=== PATIENT | male | born 1945 | race Caucasian/White ===

== ENCOUNTER → 2017-01-02 | Outpatient (CLI) | payer BC ==
[~2017-01-02] MED LIST: ASPI81TA28 PO; GLUC1CAP35 PO; MULT-506 PO
[2017-01-02 09:39] LABS: BASO % 0.6 %; BASO ABS # 0.02 K/uL (0-0.2); COMPLETE YES; HEMATOCRIT 41.3 % (42-52); IG% 0.3 %; LYMPH % 38.1 %; LYMPH ABS # 1.35 K/uL (1.2-3.4); MEAN CELL VOLUME 91.6 fL (80-100); MEAN CORPUSCULAR HEMOGLOBIN 31.5 pg (25-34); MEAN CORPUSCULAR HGB CONC 34.4 g/dl (32-36); MEAN PLATELET VOLUME 9.5 fL (7.4-10.4); MONO % 9.6 %; NEUT % 42.4 %; PLATELET COUNT 132 K/uL (130-400); RED BLOOD COUNT 4.51 M/uL (4.7-6.1); WHITE BLOOD COUNT 3.54 K/uL (4.8-10.8)
[2017-01-02 10:10] LABS: ALT/SGPT 28 U/L (12-78); AST/SGOT 19 U/L (15-37); BLOOD UREA NITROGEN 18 mg/dl (7-18); BUN/CREATININE RATIO 21.5 (10-20); CALCIUM 8.3 mg/dl (8.5-10.1); CARBON DIOXIDE 24 mmol/L (21-32); CHLORIDE 109 mmol/L (98-107); CREATININE 0.83 mg/dl (0.60-1.40); GLUCOSE 86 mg/dl (70-99); POTASSIUM 4.2 mmol/L (3.5-5.1); SODIUM 141 mmol/L (136-145)
[2017-01-02 10:15] LABS: ALB/GLOB RATIO 1.1 (0.9-2); ALKALINE PHOSPHATASE 61 U/L (45-117); CHOLESTEROL 109 mg/dl (0-200); CHOLESTEROL/HDL RATIO 2.6; HDL CHOLESTEROL 42 mg/dl; LDL CHOLESTEROL CALCULATED 51 mg/dl; TRIGLYCERIDES 79 mg/dl (0-150); VERY LOW DENSITY LIPOPROT CALC 16 mg/dl
== END | disposition home or self-care (01) ==
LOC: C.LAB 07:45
PROVIDERS: ATTEND Internal Medicine
DX: Z00.00 Encounter for general adult medical examination without abnormal findings (principal); D72.819 Decreased white blood cell count, unspecified; N28.1 Cyst of kidney, acquired; N40.1 Benign prostatic hyperplasia with lower urinary tract symptoms

== ENCOUNTER → 2017-01-17 | Outpatient (CLI) | payer BC ==
--- NOTE | 2017-01-17 15:30 | MAMMOGRAPHY REPORT ---
MALE BILATERAL DIGITAL DIAGNOSTIC MAMMOGRAM TOMOSYNTHESIS WITH CAD AND TARGETED RIGHT ULTRASOUND: 01/17/2017 CLINICAL HISTORY: 71-year-old male presents with an abnormal tingling sensation throughout the right breast for several months, with occasional itching. No palpable mass or focal pain. Overall this ab normal sensation has been decreasing recently. No family history of discharge. Questionable few epi sodes of right breast nipple discharge noted by the patient's family but the patient is unsure if thi s actually represents discharge from the nipple. TECHNIQUE: Bilateral breast tomosynthesis in addition to standard 2D mammography was performed. Curre nt study was also evaluated with a Computer Aided Detection (CAD) system. COMPARISON: No prior exams were available for comparison. BREAST COMPOSITION: The breast parenchyma is nearly entirely fat. FINDINGS: There is no evidence of a suspicious mass, architectural distortion, asymmetry or suspiciou s microcalcifications bilaterally. No focal skin thickening or nipple retraction is identified. No evidence of gynecomastia. Targeted ultrasound was performed throughout the right breast in the area of abnormal tinkering sensa tion described by the patient. Sonographically normal tissue is seen without a suspicious solid or c ystic mass. IMPRESSION: ACR BI-RADS CATEGORY 1: NEGATIVE, TARGETED ULTRASOUND ACR BI-RADS CATEGORY 1: NEGATIVE Normal mammographic appearance of both breasts, and normal right breast ultrasound. There is no mamm ographic or targeted sonographic evidence of malignancy, evidence of gynecomastia or other suspicious abnormality to explain the abnormal tingling sensation of the right breast. No abnormality is ident ified to explain the questionable history of right nipple discharge. Recommend clinical follow-up an d if possible, sampling of the fluid for cytologic analysis may be useful. These results and recommendations were discussed with the patient at the time of the exam. Approximately 10% of breast cancers are not detected with mammography. A negative mammographic report should not delay biopsy if a clinically suggestive mass is present. Flores Jules M.D. ay/:01/17/2017 14:48:13 Airveyor Operator: Nuvia LINN)(Sarah), [facility] letter sent: Normal 1/2 BI-RADS Code: ACR BI-RADS Category 1: Negative Ultrasound BI-RADS: ACR BI-RADS Category 1: Negative
== END | disposition home or self-care (01) ==
LOC: C.MAMM 13:24
PROVIDERS: ATTEND Internal Medicine
DX: N64.3 Galactorrhea not associated with childbirth (principal)

== ENCOUNTER 2023-10-22 16:33 | Inpatient (IN) ==
[2023-10-22 17:20] LABS: iSTAT Creatinine 0.9 mg/dl (0.6-1.3); iSTAT Hemoglobin 11.2 g/dl (14.0-18.0); iSTAT Ionized Calcium 1.08 mmol/l (1.12-1.32); iSTAT Potassium 3.9 mmol/L (3.3-5.0)
[2023-10-22 17:22] LABS: Basophils # (auto) 0.02 K/uL (0.00-0.20); Basophils % (auto) 0.4 %; Eosinophils # (auto) 0.14 K/uL (0.00-0.50); Eosinophils % (auto) 2.9 %; Hematocrit (blood only) 33.9 % (42.0-52.0); Hemoglobin 11.4 g/dl (14.0-18.0); Immature Granulocytes # (auto) 0.02 K/uL (0.01-0.20); Immature Granulocytes % (auto) 0.4 %; Lymphocytes # (auto) 0.83 K/uL (1.20-3.40); Lymphocytes % (auto) 17.1 %; Mean Corpuscular Hgb Conc 33.6 g/dL (32.0-36.0); Mean Corpuscular Volume 92.1 fL (80.0-100.0); Monocytes # (auto) 0.65 K/uL (0.11-0.59); Monocytes % (auto) 13.4 %; Neutrophils # (auto) 3.19 K/uL (1.40-6.50); Neutrophils % (auto) 65.8 %; Platelet Count 160 K/uL (130-400); RDW Coefficient of Variation 12.4 % (11.5-14.5); RDW Standard Deviation 41.2 fL (36.4-46.3); Red Blood Count 3.68 M/uL (4.70-6.10); White Blood Count 4.85 K/ul (4.8-10.8)
--- NOTE | 2023-10-22 17:34 | Emergency Department Note ---
Impression & Plan Acute pericardial effusion ED Provider Note NAME: DEVANTE FALL AGE: 78 SEX: M : 1945 ARRIVES VIA: Walk-In INFORMANT: Patient, ED PROVIDER(S): Anita Esparza MD CHIEF COMPLAINT: Choking HPI: This is a 78-year-old male presenting for choking episode. Patient states that he has had a 1 week history of difficulty swallowing. He notes he has been eating soft/liquid foods due to the scared of choking. He was drinking water today when he had a choking sensation. He has noted fever over the past few days up to 100 degrees. He has had some slight cough for this week as well. No recent nausea, vomiting. No chest pain. He had an EGD about 1 month ago which showed gastritis. ROS: See above HPI for pertinent positives & negatives. A total of 10 systems reviewed and were otherwise negative. PHYSICAL EXAMINATION: General: resting comfortably in no acute distress Head: Normocephalic and atraumatic Eyes: Normal inspection, extraocular muscles intact Ear, nose, throat: Normal external exam Neck: Normal range of motion Respiratory: lungs clear to auscultation bilaterally Cardiovascular: Regular rate/rhythm, no murmur, distant heart sound GI: soft, nontender, no guarding or rebound Extremities: nontender, moves all extremities Neuro: The patient awake and alert, appropriately conversive, no focal deficits, symmetric faces Skin: Warm, dry, and intact MEDICAL DECISION MAKING: This is a 78-year-old male presenting for episode of choking. Patient had previous cardiac workup done about 1 month ago in [place]. There is no acute abnormality found. He then had an episode of choking on water today. No shortness of breath currently. Has had intermittent fevers -Will do CT of the chest/neck to help evaluate for any causes of his aspiration to this new mass, aspiration pneumonia -Patient CT imaging reveals a large pericardial effusion upon my independent interpretation -Clinically no signs of tamponade. No JVD is noted, no hypotension, shortness of breath -Discussed care with Dr. Wright, copy preparer, recommends echocardiogram. He will see the patient consultation tomorrow. -Dr Barrow consulted for admission -Patient's family, and daughter, who is a edgerman, made aware of plan. Differential diagnosis: Aspiration pneumonia, pneumonitis, esophageal mass, esophagitis, ACS, PE ER treatment provided: See below Diagnostics interpreted by me: ECG: ECG independently interpreted by me with normal sinus rhythm, rate of 77, normal axis, normal CA, normal QRS, normal QTc, no ST segment elevations consistent with STEMI criteria, low overall voltage Cardiac Monitoring: An order was placed for continuous cardiac monitoring. The monitor shows a rate of 77 with sinus rhythm. Laboratory studies: As stated above and show below. Imaging studies: See below. 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 Hyperglycemia Vitamin D deficiency Vitamin B12 deficiency Cerumen impaction History of colon polyps Encounter for pre-operative examination Thrombocytopenia Benign prostatic hyperplasia with lower urinary tract symptoms (Acute) Carcinoma of bladder (Acute) sx/chemo Cyst of kidney, acquired (Acute) Laryngopharyngeal reflux (Acute) Leukopenia (Acute) Solitary pulmonary nodule (Acute) Medical History DJD (degenerative joint disease), thoracic Laryngopharyngeal reflux disease Vitamin D deficiency Hx of thrombocytopenia (2019) Cyst of kidney, acquired Solitary pulmonary nodule History of colon polyps Hx of bladder cancer (2018) Low vitamin B12 level COVID (06/2022) Surgical History Hx of oral surgery History of esophagogastroduodenoscopy (EGD) History of cystoscopy History of colonoscopy History of wisdom tooth extraction History of bladder surgery S/P tonsillectomy Family History Father Stroke Other No family history of adverse response to anesthesia Denies family history of Ovarian cancer Prostate cancer Myocardial infarction Breast cancer Colorectal cancer Social History Smoking Status: Never smoker Second Hand Exposure: No; Do You Dip or Chew Tobacco: No; Hx Alcohol Use: Yes Hx Substance Use: No Preferred Language: Divehi Communication Ability: Effective Visual Impairment: No Limitations Hearing Ability: Normal Roller Stainer Required: No Beliefs That Will Affect Care: None marital status: Current Living Situation: Spouse current occupational status: retired Feels Safe at Home: Yes Dental Care, Regularly: Yes Physical Activity Frequency: Daily Seatbelt Use: always Sunscreen Use: No Assistive Devices: Glasses Allergies Allergies Allergy/AdvReac Type Severity Reaction Status Date / Time No Known Drug Allergies Allergy Verified 10/18/23 12:29 Home Meds Home Medications Medication Instructions Recorded Confirmed glucosamine sulfate 500 mg capsule 500 mg PO Q OTHER DAY 08/31/18 10/22/23 mecobalamin (vitamin B12) 1,000 1,000 mcg PO DAILY 08/10/23 10/22/23 mcg chewable tablet multivitamin 1 tab PO DAILY 08/10/23 10/22/23 tamsulosin 0.4 mg capsule 0.4 mg PO Q OTHER DAY 08/10/23 10/22/23 cholecalciferol (vitamin D3) 50 50 mcg PO DAILY 08/31/23 10/22/23 mcg (2,000 unit) capsule Previous Rx's Medication Instructions Recorded pantoprazole 40 mg tablet,delayed 40 mg PO QAM #30 tabs 09/13/23 release Results & Data (ED) Vital Signs Vital Signs - 24 hr 10/22/23 16:37 10/22/23 16:52 10/22/23 16:52 Temperature 36.6 C Temperature Source Temporal Artery Scan Pulse Rate 87 Pulse Rate [Apical] Pulse Rate from SpO2 Sensor Pulse Rhythm [Apical] Respiratory Rate 15 Respiratory Effort / Characteristics Non-Labored Spontaneous Respiratory Depth Normal Respiratory Pattern Blood Pressure 119/80 107/79 107/79 Blood Pressure [Left Arm] Blood Pressure Mean 93 89 89 Blood Pressure Mean [Left Arm] Pulse Oximetry 96 Oxygen Delivery Method Room Air Sepsis Recent Fever Within 48 Hours No Sepsis New/Unexplained Change in Mental Status No Sepsis Action Taken by Nursing No Action Required 10/22/23 16:52 10/22/23 16:52 10/22/23 16:54 Temperature Temperature Source Pulse Rate 80 Pulse Rate [Apical] Pulse Rate from SpO2 Sensor 80 Pulse Rhythm [Apical] Respiratory Rate 25 H Respiratory Effort / Characteristics Respiratory Depth Respiratory Pattern Blood Pressure 107/79 107/79 Blood Pressure [Left Arm] Blood Pressure Mean 89 89 Blood Pressure Mean [Left Arm] Pulse Oximetry 94 Oxygen Delivery Method Sepsis Recent Fever Within 48 Hours Sepsis New/Unexplained Change in Mental Status Sepsis Action Taken by Nursing 10/22/23 16:55 10/22/23 16:57 10/22/23 17:00 Temperature Temperature Source Pulse Rate 80 80 Pulse Rate [Apical] Pulse Rate from SpO2 Sensor 80 Pulse Rhythm [Apical] Respiratory Rate 18 Respiratory Effort / Characteristics Respiratory Depth Respiratory Pattern Blood Pressure 112/86 Blood Pressure [Left Arm] Blood Pressure Mean 98 Blood Pressure Mean [Left Arm] Pulse Oximetry 95 Oxygen Delivery Method Sepsis Recent Fever Within 48 Hours Sepsis New/Unexplained Change in Mental Status Sepsis Action Taken by Nursing 10/22/23 17:09 10/22/23 17:09 10/22/23 17:12 Temperature Temperature Source Pulse Rate 80 Pulse Rate [Apical] 80 Pulse Rate from SpO2 Sensor 80 Pulse Rhythm [Apical] Regular Respiratory Rate 20 19 Respiratory Effort / Characteristics Non-Labored Spontaneous Respiratory Depth Normal Respiratory Pattern Regular Blood Pressure Blood Pressure [Left Arm] 112/86 Blood Pressure Mean Blood Pressure Mean [Left Arm] 94 Pulse Oximetry 94 93 94 Oxygen Delivery Method Room Air Room Air Sepsis Recent Fever Within 48 Hours Sepsis New/Unexplained Change in Mental Status Sepsis Action Taken by Nursing 10/22/23 17:51 10/22/23 18:00 10/22/23 18:12 Temperature Temperature Source Pulse Rate 77 73 77 Pulse Rate [Apical] Pulse Rate from SpO2 Sensor 76 72 79 Pulse Rhythm [Apical] Respiratory Rate 19 17 Respiratory Effort / Characteristics Respiratory Depth Respiratory Pattern Blood Pressure 128/98 Blood Pressure [Left Arm] Blood Pressure Mean 108 Blood Pressure Mean [Left Arm] Pulse Oximetry 95 95 95 Oxygen Delivery Method Sepsis Recent Fever Within 48 Hours Sepsis New/Unexplained Change in Mental Status Sepsis Action Taken by Nursing Laboratory Data 10/22/23 16:52 10/22/23 16:52 Lab Results 10/22/23 10/22/23 10/22/23 Range/Units 16:50 16:52 17:06 WBC 4.85 (4.8-10.8) K/ul RBC 3.68 L (4.70-6.10) M/uL Hgb 11.4 L (14.0-18.0) g/dl POC Hgb 11.2 L (14.0-18.0) g/dl Hct 33.9 L (42.0-52.0) % POC Hct 33 L (42-52) % MCV 92.1 (80.0-100.0) fL MCH 31.0 (25.0-34.0) pg MCHC 33.6 (32.0-36.0) g/dL RDW Std Deviation 41.2 (36.4-46.3) fL RDW Coeff of Shameka 12.4 (11.5-14.5) % Plt Count 160 (130-400) K/uL MPV 9.0 L (9.4-12.4) fL Immature Gran % (Auto) 0.4 % Neut % (Auto) 65.8 % Lymph % (Auto) 17.1 % [place] % (Auto) 13.4 % Eos % (Auto) 2.9 % Baso % (Auto) 0.4 % Neut # (Auto) 3.19 (1.40-6.50) K/uL Lymph # (Auto) 0.83 L (1.20-3.40) K/uL [place] # (Auto) 0.65 H (0.11-0.59) K/uL Eos # (Auto) 0.14 (0.00-0.50) K/uL Baso # (Auto) 0.02 (0.00-0.20) K/uL Immature Gran # (Auto) 0.02 (0.01-0.20) K/uL POC Sodium 138 (135-144) mmol/L Sodium 135 L (136-145) mmol/L POC Potassium 3.9 (3.3-5.0) mmol/L Potassium 3.9 (3.5-5.1) mmol/L POC Chloride 102 (101-112) mmol/L Chloride 104 (98-107) mmol/L Carbon Dioxide 25 (21-32) mmol/L POC Total CO2 22 L (24-31) mmol/L Anion Gap 6 (3-11) POC Anion Gap 18.0 (16-25) mmol/L POC BUN 12 (7-18) mg/dl BUN 14 (6-23) mg/dl Creatinine 0.88 (0.6-1.4) mg/dl POC Creatinine 0.9 (0.6-1.3) mg/dl Est Cr Clr Drug Dosing Not Reportable Est GFR ( Amer) 96.0 ml/min Est GFR (Non-Af Amer) 82.9 ml/min BUN/Creatinine Ratio 15.9 (10-20) Glucose 116 H (70-99(Fasting)) mg/dl POC Glucose (other) 121 H (70-99) mg/dl Calcium 8.3 L (8.6-10.3) mg/dl POC Ioniz Calcium Ted 1.08 L (1.12-1.32) mmol/l Total Bilirubin 0.7 (0.2-1.0) mg/dl AST 35 (13-39) U/L ALT 51 (7-52) U/L Alkaline Phosphatase 67 (34-104) U/L Total Protein 6.9 (6.0-8.3) gm/dl Albumin 3.7 (3.4-5.0) gm/dl Globulin 3.2 (2.5-4.0) gm/dl Albumin/Globulin Ratio 1.2 (0.9-2) Lipase 13 (11-82) U/L Adenovirus (PCR) Not Detected (NotDetected) B. pertussis DNA (PCR) Not Detected (NotDetected) B.parapertussis DNA PCR Not Detected (NotDetected) C. pneumoniae DNA (PCR) Not Detected (NotDetected) Coronavirus OC43 (PCR) Not Detected (NotDetected) Coronavirus HKU1 (PCR) Not Detected (NotDetected) Coronavirus 229E (PCR) Not Detected (NotDetected) SARS-CoV-2 (PCR) Not Detected (NotDetected) Coronavirus NL63 (PCR) Not Detected (NotDetected) Human Metapneumovir PCR Not Detected (NotDetected) Influenza Type A (PCR) Not Detected (NotDetected) Influenza Type B (PCR) Not Detected (NotDetected) M. pneumoniae (PCR) Not Detected (NotDetected) Parainfluenza 1 (PCR) Not Detected (NotDetected) Parainfluenza 2 (PCR) Not Detected (NotDetected) Parainfluenza 3 (PCR) Not Detected (NotDetected) Parainfluenza 4 (PCR) Not Detected (NotDetected) RSV (PCR) Not Detected (NotDetected) Entero/Rhino (PCR) Not Detected (NotDetected) Administered Medications Discontinued Medications Ioversol (Optiray 320 100ml) 94 ml IV ONCE ONE Stop: 10/22/23 17:44 Last Admin: 10/22/23 17:43 Dose: 94 ml Documented By: EDK Imaging Data Radiologist's Impression: Chest CT 10/22/23 16:52 CT chest diagnostic w con CLINICAL HISTORY: aspiration, achalasia, stricture TECHNIQUE: Multidetector row helical CT of the chest was performed with intravenous contrast. Coronal and sagittal reformations were obtained. Automated dose lowering techniques and/or adjustment according to patient size were utilized for this exam. Comparison: Comparison is made to CT chest 01/11/2016 FINDINGS: Lungs and pleura: Atelectasis versus scarring is seen in the dependent portions of the lungs. A right fissural nodule is unchanged. Heart and pericardium: Large pericardial effusion is new from prior exam. Vessels: Pulmonary trunk measures 36 mm in diameter. Mediastinum and wendy: Subcentimeter lymph nodes are seen. Chest wall and lower neck: Unremarkable. Abdomen: A hiatal hernia is seen. Bones: Degenerative changes in the thoracic spine. IMPRESSION: Interval development of a large pericardial effusion. No definite evidence of cardiac tamponade not, however clinical correlation is recommended. ACT 112: Negative or not required by law. Electronically signed by: Petey Wan M.D. 10/22/2023 6:02 PM Soft Tissue Neck CT 10/22/23 16:52 CT soft tissue neck w con CLINICAL HISTORY: achalasia, stricture, previous EGD Technique: Axial CT images of the soft tissues of the neck were obtained following intravenous administration of 100 cc of Omnipaque 300. Automated dose lowering techniques and/or adjustment according to patient size were utilized for this exam. CT DOSE: 1253.68 mGy.cm Comparison: None available at the time of this dictation. Findings: The oropharynx, hypopharynx, larynx, and trachea are patent. No enlarged lymph nodes are seen. The parotid glands, submandibular glands, and thyroid gland are unremarkable. Imaged portions of the brain parenchyma are unremarkable. The paranasal sinuses and mastoid air cells are normal in appearance. Impression: No acute abnormality and in particular the esophagus is normal. ACT 112: Negative or not required by law. Electronically signed by: Petey Wan M.D. 10/22/2023 6:13 PM Discharge Plan Visit Data Chief Complaint: Choking Stated Complaint: CHOKING/COUGHING, NOT CURRENTLY, HEART BURN ED Provider: Anita Esparza Discharge Problem: Acute pericardial effusion Forms Stand Alone Forms: My [facility] Prescriptions Prescriptions: No Action pantoprazole 40 mg tablet,delayed release (DR/EC) 40 mg PO QAM Qty: 30 5RF glucosamine sulfate 500 mg capsule 500 mg PO Q OTHER DAY Patient Comments: takes in am multivitamin Tablet 1 tab PO DAILY mecobalamin (vitamin B12) 1,000 mcg tablet,chewable 1,000 mcg PO DAILY cholecalciferol (vitamin D3) 50 mcg (2,000 unit) capsule 50 mcg PO DAILY tamsulosin 0.4 mg capsule 0.4 mg PO Q OTHER DAY Referrals Referrals: Pro,Faustino Quintana MD [Primary Care Provider] -
[2023-10-22 17:37] LABS: Alanine Aminotransferase 51 U/L (7-52); Albumin Globulin Ratio 1.2 (0.9-2); Albumin Level 3.7 gm/dl (3.4-5.0); Alkaline Phosphatase 67 U/L (34-104); Anion Gap 6 (3-11); Aspartate Aminotransferase 35 U/L (13-39); BUN Creatinine Ratio 15.9 (10-20); Bilirubin,Total 0.7 mg/dl (0.2-1.0); Blood Urea Nitrogen 14 mg/dl (6-23); Calcium 8.3 mg/dl (8.6-10.3); Carbon Dioxide 25 mmol/L (21-32); Chloride 104 mmol/L (98-107); Est GFR (Non-African American) 82.9 ml/min; Globulin 3.2 gm/dl (2.5-4.0); Glucose 116 mg/dl (70-99(Fasting)); Lipase 13 U/L (11-82); Potassium 3.9 mmol/L (3.5-5.1); Sodium 135 mmol/L (136-145); Total Protein 6.9 gm/dl (6.0-8.3)
[2023-10-22] MEDS: OPTIRAY 320 100ml IV ONE (17:43)
--- NOTE | 2023-10-22 18:04 | CT Scan Report ---
CT chest diagnostic w con CLINICAL HISTORY: aspiration, achalasia, stricture TECHNIQUE: Multidetector row helical CT of the chest was performed with intravenous contrast. Coronal and sagittal reformations were obtained. Automated dose lowering techniques and/or adjustment accord ing to patient size were utilized for this exam. Comparison: Comparison is made to CT chest 01/11/2016 FINDINGS: Lungs and pleura: Atelectasis versus scarring is seen in the dependent portions of the lungs. A right fissural nodule is unchanged. Heart and pericardium: Large pericardial effusion is new from prior exam. Vessels: Pulmonary trunk measures 36 mm in diameter. Mediastinum and wendy: Subcentimeter lymph nodes are seen. Chest wall and lower neck: Unremarkable. Abdomen: A hiatal hernia is seen. Bones: Degenerative changes in the thoracic spine. IMPRESSION: Interval development of a large pericardial effusion. No definite evidence of cardiac tamponade not, however clinical correlation is recommended. ACT 112: Negative or not required by law. Electronically signed by: Petey Wan M.D. 10/22/2023 6:02 PM
[2023-10-22 18:08] LABS: Adenovirus PCR Not Detected (NotDetected); Bordetella parapertussis PCR Not Detected (NotDetected); Bordetella pertussis PCR Not Detected (NotDetected); Chlamydia pneumoniae PCR Not Detected (NotDetected); Coronavirus 229E PCR Not Detected (NotDetected); Coronavirus CoV-2 (COVID19)PCR Not Detected (NotDetected); Coronavirus HKU1 PCR Not Detected (NotDetected); Coronavirus NL63 PCR Not Detected (NotDetected); Coronavirus OC43PCR Not Detected (NotDetected); Human Metapneumovirus PCR Not Detected (NotDetected); Influenza A PCR Not Detected (NotDetected); Influenza B PCR Not Detected (NotDetected); Mycoplasma pneumoniae PCR Not Detected (NotDetected); Parainfluenza Virus 1 PCR Not Detected (NotDetected); Parainfluenza Virus 2 PCR Not Detected (NotDetected); Parainfluenza Virus 3 PCR Not Detected (NotDetected); Parainfluenza Virus 4 PCR Not Detected (NotDetected); Respiratory Syncytial VirusPCR Not Detected (NotDetected); Rhinovirus/Enterovirus PCR Not Detected (NotDetected)
--- NOTE | 2023-10-22 18:15 | CT Scan Report ---
CT soft tissue neck w con CLINICAL HISTORY: achalasia, stricture, previous EGD Technique: Axial CT images of the soft tissues of the neck were obtained following intravenous admini stration of 100 cc of Omnipaque 300. Automated dose lowering techniques and/or adjustment according t o patient size were utilized for this exam. CT DOSE: 1253.68 mGy.cm Comparison: None available at the time of this dictation. Findings: The oropharynx, hypopharynx, larynx, and trachea are patent. No enlarged lymph nodes are seen. The pa rotid glands, submandibular glands, and thyroid gland are unremarkable. Imaged portions of the brain parenchyma are unremarkable. The paranasal sinuses and mastoid air cell s are normal in appearance. Impression: No acute abnormality and in particular the esophagus is normal. ACT 112: Negative or not required by law. Electronically signed by: Petey Wan M.D. 10/22/2023 6:13 PM
[2023-10-22 18:55] LABS: Troponin I High Sensitivity 3.2 pg/ml (0-20)
--- NOTE | 2023-10-22 19:15 | History & Physical Report ---
Date of Service October 22, 2023 Assessment & Plan (1) Acute pericardial effusion: (2) Gastritis: (3) GERD (gastroesophageal reflux disease): (4) Thrombocytopenia: (5) Benign prostatic hyperplasia with lower urinary tract symptoms: (6) Carcinoma of bladder: Plan Hunter is a 78M w/ PMH of gastritis, GERD, BPH w/ LUTS, and bladder carcinoma s/p resection who presents for evaluation after a choking episode at home. Pericardial Effusion - Presenting with increasing chest fullness/pressure and cough w/ brief conversation, progressed to choking episode prior to arrival NPO on admission pending Cardiology intervention, would recommend speech eval prior to advancing diet - Chest CT indicating large pericardial effusion No evidence of cardiac tamponade on CT Clinically w/o hypotension or JVD to support tamponade, but heart sounds are muffled on exam - Hemodynamically stable on room air, asymptomatic at rest - Underlying cause undetermined, workup ongoing: ESR, CRP, BRADLEY, RF, Coxsackie, and Lyme/Babesia/Anaplasma pending No leukocytosis or renal abnormality on presenting labs Urinalysis pending BioFire negative - Suspect viral URI leading to pericarditis followed by pericardial effusion Will start Colchicine 1 mg Q12 for 24 hours followed by 0.5 mg BID Will start low dose steroids, Prednisone 20 mg PO daily, would titrate duration to inflammatory markers - Interventional Cardiology consulted, recommending Echocardiogram Echocardiogram ordered STAT 08/25/23 Echocardiogram: EF 60-65%, Aortic Root enlarged to 4.5 cm w/ trace insufficiency 08/25/23 Nuclear Stress Echo: Negative for ischemia Dr. Wright to see at bedside in AM - Immediate drainage not acutely indicated d/t lack of hemodynamic compromise or unstable symptoms - Continue with conservative measures Monitor on PCU/telemetry Chronic Conditions: - GERD: PPI changed to IV - BPH w/ LUTS: continue Tamsulosin - Bladder Carcinoma: S/p resection, continues to follow w/ Urology, no active disease > 1 year Code: Full Diet: NPO Dispo: PCU/tele Consults: Cardiology History of Present Illness Chief Complaint: Choking Episode Primary Care Provider: Faustino Leija MD Hunter is a 78M w/ PMH of gastritis, GERD, BPH w/ LUTS, bladder carcinoma s/p resection, thrombocytopenia, and leukopenia who presents for evaluation after a choking episode at home. Patient notes that mid-afternoon today he had a choking/coughing episode while drinking water and subsequently felt lightheaded and like he was going to pass out. He was able to walk to the bathroom and started to experience nausea and belching. This acute episode prompted him to present to the ED. He notes that over the last week, starting 10/15 he started to feel unwell. His symptoms started with fatigue, but progressed to fevers, chills, and chest heaviness and pressure. He presented to [facility] 10/17 for fevers at home, and was advised to continue OTC supportive measures for a URI (COVID, Flu, and Strep were negative). Patient continued to have intermittent fevers. He has been unable to eat due to chest pressure, notes that his chest feels to full to eat. Patient has been taking Tylenol for his symptoms (Last dose at 10/20). Patient denies dyspnea at rest, but notes that he becomes dyspneic and has coughing spells when he tries to talk to someone. He deneis headaches, lightheadedness or dizziness. Patient notes no changes in urinary or bowel habits, no hematuria or BRBPM. Patient does note that it has been requiring increasing amounts of effort over the last week to do his normal activities, as he becomes fatigued very quickly. Was at daughters in [place] (2 months ago) and had an extreme episode of gastritis, at this time had an EGD and was diagnosed. Took PPI and 1-2 days later was feeling back to normal and was able to drive back to [place]. When he started having coughing episodes, he did increase his Famotidine to BID, and it helped briefly, but the coughing continued to progress. Allergies Allergy/AdvReac Type Severity Reaction Status Date / Time No Known Drug Allergies Allergy Verified 10/18/23 12:29 Home Medications Medication Instructions Recorded Confirmed Type glucosamine sulfate 500 mg capsule 500 mg PO Q OTHER DAY 08/31/18 10/22/23 History mecobalamin (vitamin B12) 1,000 1,000 mcg PO DAILY 08/10/23 10/22/23 History mcg chewable tablet multivitamin 1 tab PO DAILY 08/10/23 10/22/23 History tamsulosin 0.4 mg capsule 0.4 mg PO Q OTHER DAY 08/10/23 10/22/23 History cholecalciferol (vitamin D3) 50 50 mcg PO DAILY 08/31/23 10/22/23 History mcg (2,000 unit) capsule pantoprazole 40 mg tablet,delayed 40 mg PO QAM #30 tabs 09/13/23 10/22/23 Rx release 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 Hyperglycemia Vitamin D deficiency Vitamin B12 deficiency Cerumen impaction History of colon polyps Encounter for pre-operative examination Thrombocytopenia Benign prostatic hyperplasia with lower urinary tract symptoms (Acute) Carcinoma of bladder (Acute) sx/chemo Cyst of kidney, acquired (Acute) Laryngopharyngeal reflux (Acute) Leukopenia (Acute) Solitary pulmonary nodule (Acute) Medical History DJD (degenerative joint disease), thoracic Laryngopharyngeal reflux disease Vitamin D deficiency Hx of thrombocytopenia (2019) Cyst of kidney, acquired Solitary pulmonary nodule History of colon polyps Hx of bladder cancer (2018) Low vitamin B12 level COVID (06/2022) Surgical History Hx of oral surgery History of esophagogastroduodenoscopy (EGD) History of cystoscopy History of colonoscopy History of wisdom tooth extraction History of bladder surgery S/P tonsillectomy Family History Father Stroke Other No family history of adverse response to anesthesia Denies family history of Ovarian cancer Prostate cancer Myocardial infarction Breast cancer Colorectal cancer Social History Smoking Status: Never smoker Second Hand Exposure: No; Do You Dip or Chew Tobacco: No; Hx Alcohol Use: Yes Alcohol type: wine Hx Substance Use: No Preferred Language: Botswanan Communication Ability: Effective Visual Impairment: No Limitations Hearing Ability: Normal Client Services Analyst Required: No Beliefs That Will Affect Care: None marital status: Current Living Situation: Spouse current occupational status: retired Feels Safe at Home: Yes Safety Concerns: Feels Safe At This Time Dental Care, Regularly: Yes Physical Activity Frequency: Daily Seatbelt Use: always Sunscreen Use: No Assistive Devices: Glasses Physical Exam Physical Exam: Gen: NAD, alert, interactive HEENT: Supple, no LAD, no thyromegaly, no JVD Resp:Non-labored, no wheezing/rhonchi/rales, CTAB - Coughing spells with conversation CV:RRR, normal S1/S2, no M/R/G, heart sounds muffled, no pericardial friction rub Abd: Soft, non-distended, no TTP, normoactive bowels, no masses Extr: 2+ dp bilaterally, no edema, clinically well perfused Skin: No rashes lesions or erythema Results & Data Results & Data Vital Signs (Past 12 Hours) Vital Signs Temp Pulse Pulse Resp BP BP Pulse Ox 10/22/23 18:12 77 17 128/98 95 10/22/23 18:00 73 95 10/22/23 17:51 77 19 95 10/22/23 17:12 80 19 94 10/22/23 17:09 80 20 112/86 93 10/22/23 17:09 94 10/22/23 17:00 112/86 10/22/23 16:57 80 18 95 10/22/23 16:55 80 10/22/23 16:54 80 25 H 94 10/22/23 16:52 107/79 10/22/23 16:52 107/79 10/22/23 16:52 107/79 10/22/23 16:52 107/79 10/22/23 16:37 36.6 C 87 15 119/80 96 O2 Del Method 10/22/23 18:12 10/22/23 18:00 10/22/23 17:51 10/22/23 17:12 10/22/23 17:09 Room Air 10/22/23 17:09 Room Air 10/22/23 17:00 10/22/23 16:57 10/22/23 16:55 10/22/23 16:54 10/22/23 16:52 10/22/23 16:52 10/22/23 16:52 10/22/23 16:52 10/22/23 16:37 Room Air Supervising Physician Co-Signing Physician Notes Attending addendum: I have physically seen this patient, have supervised the medical residents activities, and agree with the H&P unless as otherwise noted. Assessment and Plan: Large pericardial effusion- The patient will be admitted to telemetry for serial cardiac enzymes, serial EKG's, cardiac rhythm monitoring and a 2-D echocardiogram with Dopplers. Noticed on CT chest No suggestion of cardiac tamponade on examination or imaging Patient reports having had a temperature up to 101 F yesterday Primary symptom has been that of a cough, with a negative GI workup BioFire test negative Additional laboratories ordered with the following results: ESR 55, Lyme test negative, anaplasmosis and babesiosis smears negative with antibodies pending, Monospot negative, uric acid Following studies that are pending: Coxsackie virus, EBV, BRADLEY, rheumatoid factor Start prednisone 20 mg p.o. daily, colchicine 0.6 mg p.o. twice daily N.p.o. except medications as above Avoiding NSAIDs due to thrombocytopenia history Consult cardiology GERD- Continue pantoprazole but changed to IV BPH with LUTS- Continue tamsulosin post procedure Resident Activity Tracking Resident Involvement: Resident Care Provided Care Provided: Adult [facility]
[2023-10-22] MEDS ORDERED: ONDANSETRON INJ 2 MG/ML 2 ML VIAL IV PRN (22:35)
[2023-10-22 23:06] LABS: C Reactive Protein 11.01 mg/dl (0-0.5)
[2023-10-22] MEDS: PANTOprazole 40 MG in SYRINGE 0 ML IV SCH (23:12)
[2023-10-22] MEDS: predniSONE 20 MG TAB PO STA (23:12)
[2023-10-22] MEDS: COLCHICINE 0.6 MG TAB PO SCH (23:51)
--- NOTE | 2023-10-23 03:18 | Billing Data ---
Date of Service October 23, 2023 Coding Level of Care Code 27601 INT INP/OBS CARE
[2023-10-23 03:21] LABS: Appearance Urine Clear (Clear); Bilirubin Urine Negative (Negative); Blood Urine Negative (Negative); Color Urine Yellow; Glucose Urine UA Negative (Negative); Ketones Urine Negative (Negative); Leukocyte Esterase Urine Negative (Negative); Nitrite Urine Negative (Negative); Protein Urine Negative (Negative); Specific Gravity Urine 1.018 (1.000-1.030); Urobilinogen Urine Negative (Negative); pH Urine 8.5 (4.5-7.5)
[2023-10-23 07:09] LABS: Hematocrit (blood only) 34.1 % (42.0-52.0); Hemoglobin 11.4 g/dl (14.0-18.0); Mean Corpuscular Hemoglobin 31.1 pg (25.0-34.0); Mean Corpuscular Hgb Conc 33.4 g/dL (32.0-36.0); Mean Corpuscular Volume 92.9 fL (80.0-100.0); Platelet Count 161 K/uL (130-400); RDW Coefficient of Variation 12.2 % (11.5-14.5); RDW Standard Deviation 41.5 fL (36.4-46.3); Red Blood Count 3.67 M/uL (4.70-6.10); White Blood Count 4.58 K/ul (4.8-10.8)
[2023-10-23 07:31] LABS: Albumin Globulin Ratio 1.1 (0.9-2); Albumin Level 3.6 gm/dl (3.4-5.0); BUN Creatinine Ratio 15.2 (10-20); Bilirubin,Total 0.8 mg/dl (0.2-1.0); Calcium 8.3 mg/dl (8.6-10.3); Est GFR (African American) 100.4 ml/min; Est GFR (Non-African American) 86.6 ml/min; Globulin 3.2 gm/dl (2.5-4.0); Potassium 4.4 mmol/L (3.5-5.1); Total Protein 6.8 gm/dl (6.0-8.3)
[2023-10-23] MEDS: TAMSULOSIN HCL 0.4 MG CAP PO SCH (08:34)
[2023-10-23] MEDS: predniSONE 20 MG TAB PO SCH (08:35)
--- NOTE | 2023-10-23 09:23 | Pre Anesthesia Assessment ---
Date of Service October 23, 2023 Pre Sedation Assessment Vital Signs Temp Pulse Pulse Resp BP BP Pulse Ox 10/23/23 07:45 37.0 C 88 20 125/68 88 L 10/23/23 06:42 66 10/23/23 02:25 37.1 C 73 18 110/75 90 10/22/23 22:57 80 10/22/23 22:37 10/22/23 22:30 37.2 C 90 16 98/79 L 96 10/22/23 22:25 37.2 C 93 H 18 98/79 L 95 10/22/23 22:03 94 H 20 94 10/22/23 22:00 85 20 114/81 95 10/22/23 21:00 121/98 10/22/23 21:00 121/98 10/22/23 21:00 92 H 16 94 10/22/23 20:51 83 10/22/23 20:42 78 21 95 10/22/23 20:39 79 20 95 10/22/23 20:30 135/90 10/22/23 20:30 135/90 10/22/23 20:27 79 18 95 10/22/23 20:21 80 21 95 10/22/23 20:12 79 29 H 96 10/22/23 20:07 123/82 10/22/23 20:07 123/82 10/22/23 20:04 78 19 95 10/22/23 20:03 78 32 H 95 10/22/23 19:57 86 24 95 10/22/23 19:30 76 17 96 10/22/23 19:30 119/88 10/22/23 19:30 119/88 10/22/23 19:21 77 28 H 94 10/22/23 19:15 77 29 H 95 10/22/23 19:01 118/71 10/22/23 19:01 118/71 10/22/23 19:01 118/71 10/22/23 19:00 77 20 93 10/22/23 18:51 78 26 H 95 10/22/23 18:39 75 20 96 10/22/23 18:38 115/81 10/22/23 18:12 77 17 128/98 95 10/22/23 18:00 73 95 10/22/23 17:51 77 19 95 10/22/23 17:12 80 19 94 10/22/23 17:09 80 20 112/86 93 10/22/23 17:09 94 10/22/23 17:00 112/86 10/22/23 16:57 80 18 95 10/22/23 16:55 80 10/22/23 16:54 80 25 H 94 10/22/23 16:52 107/79 10/22/23 16:52 107/79 10/22/23 16:52 107/79 10/22/23 16:52 107/79 10/22/23 16:37 36.6 C 87 15 119/80 96 O2 Del Method 10/23/23 07:45 Room Air 10/23/23 06:42 10/23/23 02:25 Room Air 10/22/23 22:57 10/22/23 22:37 Room Air 10/22/23 22:30 Room Air 10/22/23 22:25 Room Air 10/22/23 22:03 10/22/23 22:00 Room Air 10/22/23 21:00 10/22/23 21:00 10/22/23 21:00 10/22/23 20:51 10/22/23 20:42 10/22/23 20:39 10/22/23 20:30 10/22/23 20:30 10/22/23 20:27 10/22/23 20:21 10/22/23 20:12 10/22/23 20:07 10/22/23 20:07 10/22/23 20:04 10/22/23 20:03 10/22/23 19:57 10/22/23 19:30 10/22/23 19:30 10/22/23 19:30 10/22/23 19:21 10/22/23 19:15 10/22/23 19:01 10/22/23 19:01 10/22/23 19:01 10/22/23 19:00 10/22/23 18:51 10/22/23 18:39 10/22/23 18:38 10/22/23 18:12 10/22/23 18:00 10/22/23 17:51 10/22/23 17:12 10/22/23 17:09 Room Air 10/22/23 17:09 Room Air 10/22/23 17:00 10/22/23 16:57 10/22/23 16:55 10/22/23 16:54 10/22/23 16:52 10/22/23 16:52 10/22/23 16:52 10/22/23 16:52 10/22/23 16:37 Room Air Cardiovascular RRR, no murmur, no edema (Distant heart sounds. No JVD or edema.) Respiratory normal respiratory effort, lungs clear to auscultation Pre-Sedation Airway Assessment Smoking Status: Never smoker Mallampati 2 ASA 3 Notes The planned sedation has been discussed with the patient. Informed Consent was obtained. I have identified the patient, determined the appropriateness of sedation and have assessed the patient immediately prior to the procedure. All medicine(s) and interventions are by my order.
--- NOTE | 2023-10-23 09:33 | Cardiology Consultation ---
Date of Consultation October 23, 2023 Assessment & Plan (1) Acute pericardial effusion: Patient will undergo ultrasound-guided pericardiocentesis. Labs will be sent for cytology as well as chemistries. Further recommendations pending results. History of Present Illness Reason for Consultation: Pericardial effusion Attending Physician: Wallace Suarez History of Present Illness 78-year-old gentleman who presented with choking episode. He is also had a cough which is nonproductive. Incidentally found to have large pericardial effusion on CT scan. No definitive evidence of cardiac tamponade. I was asked to see him regarding the pericardial effusion. Patient has a history of bladder carcinoma treated in 2018. He also has BPH. In August of this year he presented to hospital in [facility] with severe chest pain. At that time he was evaluated by cardiology. A CT scan demonstrated small pericardial effusion. Stress testing was negative for myocardial ischemia and an echocardiogram did not show any significant abnormalities. He does not recall if he had any preceding viral illness type symptoms. He described the discomfort as epigastric burning which was quite severe. It eventually resolved. The CT scan at that time also showed dilated ascending thoracic aorta at 4.5 cm. Today, patient denies any anginal chest pain heaviness or tightness. No shortness of breath. The choking sensation has resolved. He continues with a cough. No syncope, near syncope, orthopnea, PND, racing heartbeat, palpitati ons, or edema. He tells me when he presented in August he had the epigastric discomfort which was associated with near syncope and weakness. He voices no other complaints or concerns at this time. We discussed pericardiocentesis versus conservative medical management with diuresis. He wishes to proceed with pericardiocentesis so that we may also obtain the diagnostic information available by that method. Allergies Allergy/AdvReac Type Severity Reaction Status Date / Time No Known Drug Allergies Allergy Verified 10/18/23 12:29 Home Medications Medication Instructions Recorded Confirmed Type glucosamine sulfate 500 mg capsule 500 mg PO Q OTHER DAY 08/31/18 10/22/23 History mecobalamin (vitamin B12) 1,000 1,000 mcg PO DAILY 08/10/23 10/22/23 History mcg chewable tablet multivitamin 1 tab PO DAILY 08/10/23 10/22/23 History tamsulosin 0.4 mg capsule 0.4 mg PO Q OTHER DAY 08/10/23 10/22/23 History cholecalciferol (vitamin D3) 50 50 mcg PO DAILY 08/31/23 10/22/23 History mcg (2,000 unit) capsule pantoprazole 40 mg tablet,delayed 40 mg PO QAM #30 tabs 09/13/23 10/22/23 Rx release Patient History Medical History DJD (degenerative joint disease), thoracic Laryngopharyngeal reflux disease Vitamin D deficiency Hx of thrombocytopenia (2018) Cyst of kidney, acquired Solitary pulmonary nodule pt unaware History of colon polyps Hx of bladder cancer (2017) sx/chemo Low vitamin B12 level COVID (06/2022) hx- no hosp; resolved Surgical History Hx of oral surgery dental implants History of esophagogastroduodenoscopy (EGD) History of cystoscopy History of colonoscopy History of wisdom tooth extraction History of bladder surgery for tumor S/P tonsillectomy Family History Father Stroke Other No family history of adverse response to anesthesia Denies family history of Ovarian cancer Prostate cancer Myocardial infarction Breast cancer Colorectal cancer Social History Smoking Status: Never smoker Second Hand Exposure: No; Do You Dip or Chew Tobacco: No; Hx Alcohol Use: Yes Alcohol type: wine Hx Substance Use: No Preferred Language: Salvadorean Communication Ability: Effective Visual Impairment: No Limitations Hearing Ability: Normal Stagecraft Teacher Required: No Beliefs That Will Affect Care: None marital status: Current Living Situation: Spouse current occupational status: retired Feels Safe at Home: Yes Safety Concerns: Feels Safe At This Time Dental Care, Regularly: Yes Physical Activity Frequency: Daily Seatbelt Use: always Sunscreen Use: No Assistive Devices: Glasses Review of Systems Review of Systems: Negative except as per HPI Physical Exam Constitutional: WD/WN, vitals as above Eyes: Extraocular muscles intact. Sclera are anicteric. ENMT: Oral mucosa is pink moist and intact Neck: No JVD Respiratory: Clear to auscultation bilaterally. No wheezing, rhonchi, or rales. Good air movement. Cardiovascular: Regular rate and rhythm. Distant heart sounds. Do not appreciate any rubs or murmurs. No edema. Musculoskeletal: no cyanosis or clubbing, extremities motor strength 5/5 Neurologic: Cognition is intact. Speech is fluent. No focal deficits. Psychiatric: A+Ox3, euthymic affect Results & Data Vital Signs (Past 12 Hours) Vital Signs Temp Pulse Pulse Resp BP Pulse Ox O2 Del Method 10/23/23 07:45 37.0 C 88 20 125/68 88 L Room Air 10/23/23 06:42 66 10/23/23 02:25 37.1 C 73 18 110/75 90 Room Air 10/22/23 22:57 80 10/22/23 22:37 Room Air 10/22/23 22:30 37.2 C 90 16 98/79 L 96 Room Air 10/22/23 22:25 37.2 C 93 H 18 98/79 L 95 Room Air 10/22/23 22:03 94 H 20 94 10/22/23 22:00 85 20 114/81 95 Room Air PG Care Time/CCT Total # of Minutes Spent Total Time Spent with Patient: Total time spent is greater than 50% in coordination of care (as documented) at patient's floor/unit and/or counseling patient: Coding Level of Care Code 25550 INT INP/OBS CARE 2/MIN Diagnoses Acute pericardial effusion I30.9
[2023-10-23] MEDS: LIDOCAINE 1% LOCAL 20 ML VIAL ONE (10:21)
[2023-10-23] MEDS: MIDAZOLAM HCL 1 MG/ML 2ML VIAL ONE (10:21)
[2023-10-23] MEDS: fentaNYL citrate PF 100 MCG/2 ML VIAL ONE (10:51)
--- NOTE | 2023-10-23 11:03 | Post Anesthesia Assessment ---
Date of Service October 23, 2023 Post Sedation Assessment Vital Signs Temp Pulse Pulse Resp BP BP Pulse Ox 10/23/23 09:41 78 16 116/74 94 10/23/23 07:45 37.0 C 88 20 125/68 88 L 10/23/23 06:42 66 10/23/23 02:25 37.1 C 73 18 110/75 90 10/22/23 22:57 80 10/22/23 22:37 10/22/23 22:30 37.2 C 90 16 98/79 L 96 10/22/23 22:25 37.2 C 93 H 18 98/79 L 95 10/22/23 22:03 94 H 20 94 10/22/23 22:00 85 20 114/81 95 10/22/23 21:00 121/98 10/22/23 21:00 121/98 10/22/23 21:00 92 H 16 94 10/22/23 20:51 83 10/22/23 20:42 78 21 95 10/22/23 20:39 79 20 95 10/22/23 20:30 135/90 10/22/23 20:30 135/90 10/22/23 20:27 79 18 95 10/22/23 20:21 80 21 95 10/22/23 20:12 79 29 H 96 10/22/23 20:07 123/82 10/22/23 20:07 123/82 10/22/23 20:04 78 19 95 10/22/23 20:03 78 32 H 95 10/22/23 19:57 86 24 95 10/22/23 19:30 76 17 96 10/22/23 19:30 119/88 10/22/23 19:30 119/88 10/22/23 19:21 77 28 H 94 10/22/23 19:15 77 29 H 95 10/22/23 19:01 118/71 10/22/23 19:01 118/71 10/22/23 19:01 118/71 10/22/23 19:00 77 20 93 10/22/23 18:51 78 26 H 95 10/22/23 18:39 75 20 96 10/22/23 18:38 115/81 10/22/23 18:12 77 17 128/98 95 10/22/23 18:00 73 95 10/22/23 17:51 77 19 95 10/22/23 17:12 80 19 94 10/22/23 17:09 80 20 112/86 93 10/22/23 17:09 94 10/22/23 17:00 112/86 10/22/23 16:57 80 18 95 10/22/23 16:55 80 10/22/23 16:54 80 25 H 94 10/22/23 16:52 107/79 10/22/23 16:52 107/79 10/22/23 16:52 107/79 10/22/23 16:52 107/79 10/22/23 16:37 36.6 C 87 15 119/80 96 O2 Del Method 10/23/23 09:41 Room Air 10/23/23 07:45 Room Air 10/23/23 06:42 10/23/23 02:25 Room Air 10/22/23 22:57 10/22/23 22:37 Room Air 10/22/23 22:30 Room Air 10/22/23 22:25 Room Air 10/22/23 22:03 10/22/23 22:00 Room Air 10/22/23 21:00 10/22/23 21:00 10/22/23 21:00 10/22/23 20:51 10/22/23 20:42 10/22/23 20:39 10/22/23 20:30 10/22/23 20:30 10/22/23 20:27 10/22/23 20:21 10/22/23 20:12 10/22/23 20:07 10/22/23 20:07 10/22/23 20:04 10/22/23 20:03 10/22/23 19:57 10/22/23 19:30 10/22/23 19:30 10/22/23 19:30 10/22/23 19:21 10/22/23 19:15 10/22/23 19:01 10/22/23 19:01 10/22/23 19:01 10/22/23 19:00 10/22/23 18:51 10/22/23 18:39 10/22/23 18:38 10/22/23 18:12 10/22/23 18:00 10/22/23 17:51 10/22/23 17:12 10/22/23 17:09 Room Air 10/22/23 17:09 Room Air 10/22/23 17:00 10/22/23 16:57 10/22/23 16:55 10/22/23 16:54 10/22/23 16:52 10/22/23 16:52 10/22/23 16:52 10/22/23 16:52 10/22/23 16:37 Room Air Recovery Score Activity: Moves 4 extremities Respiration: Deep Breath/Cough Circulation: +/-20% PreAnes Value Consciousness: Fully Awake Oxygen Saturation: > 92% On Room Air Discharge Sedation Level of Care: Fast Track Phase II Post Sedation Plan On clinical assessment, the patient appears to have tolerated the sedation without complications. Patient is recovering as anticipated. Patient will continue to be monitored by nursing and may be discharged when sedation discharge criteria are met per below protocol. Upon Completions of procedure up to 15 minutes continue every 5 minute vital signs and the P.A.R. score; then discharge to a Phase I or Fast Track to Phase II per the following guidelines: * Discharge Patient to appropriate Phase II area if PAR is 8 or greater or return to pre- procedure baseline. The post - procedure orders will be as directed. * If PAR score is less than 8 or not return to pre-procedure baseline then patient will follow Phase I monitoring till PAR is reached for Phase II. The Phase I may be done in procedure room or may call to secure a Phase I area. * If naloxone or flumazenil are used for reversal, hold in Phase I for continued monitoring from when last reversal dose was given for a minimum of 60 minutes or longer pending the nurse and/or physician discretion of patient condition before discharge to Phase II. Please call the Sedation Physician to re-evaluate and complete post-note for discharge to Phase II area. Do NOT discharge from procedure sedation or Phase 1 until post- sedation evaluat ion note is complete by procedure /sedation MD Sedation Discharge Instructions to be given to the patient at discharge to home. [facility] Procedure Codes (Charges) Indication for Procedure Indication for procedure: PERICARDIAL EFFUSION LARGE HX OF BLADDER CA Sedation/Anesthesia Procedure 1: Sedation/Anesthesia: 57599 Mod Sedation by the same physician;Init15 Min Child Age 5 & Up (Initial 15 minutes, start time 1020) Total Sedation Time (minutes): 33 Procedure 2: Sedation/Anesthesia: 53697 Mod Sedation by the same physician; Ea Addit ional15 Minutes (Additional 18 minutes, end time 1053) Total Sedation Time (minutes): 33
--- NOTE | 2023-10-23 11:58 | Cardiac Catheterization ---
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 Cardiac Status Clinical evaluation leading to the procedure CAD Presenation: No Sxs, No angina Diagnostic Physicians Name: Doug Wright MD, PhD Closure Device Recommendations: Medical Therapy and/or Counseling Cardiac Cath Procedure Full Procedure Date October 23, 2023 Pre-Procedure Diagnosis Pre-Procedure Diagnosis: Pericardial Disease AUC Score AUC Score: 07 Post-Procedure Diagnosis Post-Procedure Diagnosis: Cardiothoracic Finding (Large pericardial effusion, successful pericardiocentesis) Procedure(s) Performed Procedure(s) Performed: Ultrasound Guided Vascular Access and Pericardiocentesis Drum Sander Offbearer Doug Wright MD, PhD Estimated Blood Loss Estimated Blood Loss: Less than 3 cc Medication(s) Medication(s): Fentanyl, Lidocaine 1% and Versed Summary of Findings Brief description: Patient was brought to the cardiac catheterization suite where he was shaved and prepped in a sterile fashion. Sedated using IV Versed and fentanyl. Soft tissues of the anterior chest was anesthetized using 4 mL of 1% Xylocaine. Using the ultrasound for guidance and a micropuncture kit the pericardium was accessed. Through the micropuncture sheath, confirmation of access was performed with agitated saline injection. We then utilized a dilator and exchanged for the sheath. Then we advanced the pigtail catheter under fluoroscopic guidance but it was evident that we had lost pericardial placement. Decision was made to access from the subxiphoid approach. Pigtail was removed and pressure held over the access site. Soft tissues of the subxiphoid area were anesthetized using 5 mL of 1% Xylocaine. Using the long micropuncture needle and sheath under ultrasonic guidance we were able to reaccessed the pericardial space. The long micropuncture sheath was then advanced over the wire. Again, we confirmed pericardial placement with agitated saline injection. Using a long 0.035 J-tip wire we exchanged the micropuncture sheath for a 6 Syrian sheath. Then, through this we advanced the 6 Syrian pigtail catheter over the wire. Placement was confirmed on fluoroscopy. We then began pericardial drainage. 590 mL of serosanguineous fluid was removed monitored continuously with ultrasound. 50 mL of fluid were sent for laboratory testing. The pigtail was attached to the accordion negative pressure system and then the sheath plus the pigtail catheter were sutured in place. A Biopatch was applied to the access site. The pigtail catheter and sheath were then dressed with a Tegaderm. Patient remained hemodynamically stable and asymptomatic. There was no respiratory distress. He was therefore returned to the recovery area with plans for admission to the ICU per hospital policy. This ended the case. Findings/summary: 1. Removal of 590 mL of serosanguineous pericardial fluid. Minimal residual pericardial effusion noted with echo postprocedure. 2. Pericardial fluid is sent for basic labs and cytology given history of cancer. 3. Chest x-ray will be ordered to exclude pneumothorax. Patient will remain with the pigtail in place for 24 hours and will be reassessed at that time. Removal of the pigtail catheter and sheath once appropriate. Hemodynamics Rest Ao:: Not performed Final Ao: Not performed LV: Not performed Recommendations Recommendations: Medical Therapy and/or Counseling Specimens Specimens: 590 mL pericardial fluid Radiation Exposure (mGy) 115 mGy, fluoroscopy time 2.6 min Contrast (mls) None Drains Drains: 6 Syrian pigtail pericardial drain Anesthesia 2 mg Versed, 50 mcg fentanyl IV. Start 1020, End 1053 Procedural Complication(s) None Disposition ICU I attest to the content of the Intraoperative Record and any orders documented therein. Any exceptions are noted below. [facility] Card Cath Procedure Codes Therapeutic Services & Ancillary Procedure 1: Cardiovascular Tx and Anc Procedures: 28384 Ultrasonic Guidance Earlene cardiocentesis Procedure 2: Cardiovascular Tx and Anc Procedures: 25080 Pericardiocentesis w / Imaging Moderate Sedation Procedure 1: Sedation/Anesthesia: 00187 Mod Sedation by the same physician;Init15 Min Child Age 5 & Up (Initial 15 minutes, start time 1020) Procedure 2: Sedation/Anesthesia: 71616 Mod Sedation by the same physician; Ea [id number] Minutes (Additional 18 min, end time 1053) PG Care Time/CCT Total # of Minutes Spent Total Time Spent with Patient: Total time spent is greater than 50% in coordination of care (as documented) at patient's floor/unit and/or counseling patient:
[2023-10-23] MEDS: SODIUM CHLORIDE 0.9% 1,000 ML IV SCH (12:07)
--- NOTE | 2023-10-23 12:09 | XRay Report ---
XR chest 1V portable HISTORY: post pericardial drain COMPARISON: Chest CT 10/22/2023. FINDINGS: No pneumothorax. The cardiac silhouette is moderately enlarged. A left-sided pericardial dr ain has been placed in the interval. No evidence for pulmonary edema. Left basilar linear densities f avor subsegmental atelectasis. No acute fractures. IMPRESSION: 1. Interval placement of a left-sided pericardial drain. 2. Moderate enlargement of the cardiac silhouette persists. 3. No pneumothorax. ACT 112: Negative or not required by law. Electronically signed by: Mariusz Liu M.D. 10/23/2023 12:07 PM
--- NOTE | 2023-10-23 14:30 | Critical Care Consultation ---
Date of Consultation October 23, 2023 Assessment & Plan (1) Acute respiratory failure with hypoxia: Reason Critically Ill: 78-year-old male status post pericardial drainage PLAN: Resp: Acute hypoxic respiratory failure -Wean oxygen as tolerated -Pulmonary consult CV: Acute pericardial effusion -Status post drainage -Fluid studies pending Fluids/Renal: Mild hypocalcemia ID: Serologies pending on pericardial fluid GI/Nutrition: Reflux -Speech evaluation possible video laryngoscopy for questionable silent aspiration Heme: New onset anemia Reported chronic leukopenia DVT prophylaxis: SCDs, chemoprophylaxis contraindicated at this time Endocrine: ICU hyperglycemia protocol TSH pending Vascular access: [] Code Status: [] Disposition: [] (2) Acute pericardial effusion: (3) GERD (gastroesophageal reflux disease): (4) Benign prostatic hyperplasia with lower urinary tract symptoms: (5) Carcinoma of bladder: History of Present Illness Reason for Consultation: Pericardial drain in place Requesting Physician: Wallace Suarez Attending Physician: Wallace Suarez History of Present Illness Patient is a 78-year-old male with past medical history of GERD, BPH, bladder carcinoma status postresection who presented after a choking episode and was found to have a pericardial effusion on CT. History obtained regarding cardiovascular symptoms revealed an echocardiogram and nuclear stress test on August 25, 2023 which was by enlarge part unremarkable, aortic root enlarged to 4.5 cm EF 60 to 65%. Patient underwent pericardial drain with cardiology today, 500 mL of fluid had been removed. Allergies Allergy/AdvReac Type Severity Reaction Status Date / Time No Known Drug Allergies Allergy Verified 10/18/23 12:29 Home Medications Medication Instructions Recorded Confirmed Type glucosamine sulfate 500 mg capsule 500 mg PO Q OTHER DAY 08/31/18 10/22/23 History mecobalamin (vitamin B12) 1,000 1,000 mcg PO DAILY 08/10/23 10/22/23 History mcg chewable tablet multivitamin 1 tab PO DAILY 08/10/23 10/22/23 History tamsulosin 0.4 mg capsule 0.4 mg PO Q OTHER DAY 08/10/23 10/22/23 History cholecalciferol (vitamin D3) 50 50 mcg PO DAILY 08/31/23 10/22/23 History mcg (2,000 unit) capsule pantoprazole 40 mg tablet,delayed 40 mg PO QAM #30 tabs 05/29/24 07/07/24 Rx release Patient History Medical History DJD (degenerative joint disease), thoracic Laryngopharyngeal reflux disease Vitamin D deficiency Hx of thrombocytopenia (2019) Cyst of kidney, acquired Solitary pulmonary nodule pt unaware History of colon polyps Hx of bladder cancer (2018) sx/chemo Low vitamin B12 level COVID (06/2022) hx- no hosp; resolved Surgical History Hx of oral surgery dental implants History of esophagogastroduodenoscopy (EGD) History of cystoscopy History of colonoscopy History of wisdom tooth extraction History of bladder surgery for tumor S/P tonsillectomy Family History Father Stroke Other No family history of adverse response to anesthesia Denies family history of Ovarian cancer Prostate cancer Myocardial infarction Breast cancer Colorectal cancer Social History Smoking Status: Never smoker Second Hand Exposure: No; Do You Dip or Chew Tobacco: No; Hx Alcohol Use: Yes Alcohol type: wine Hx Substance Use: No Preferred Language: Gambian Communication Ability: Effective Visual Impairment: No Limitations Hearing Ability: Normal Dietitian Consultant Required: No Beliefs That Will Affect Care: None marital status: Current Living Situation: Spouse current occupational status: retired Feels Safe at Home: Yes Safety Concerns: Feels Safe At This Time Dental Care, Regularly: Yes Physical Activity Frequency: Daily Seatbelt Use: always Sunscreen Use: No Assistive Devices: Glasses Physical Exam Physical Exam: General: Alert. nontoxic. Skin: Warm, dry, Head: Atraumatic Ears, nose, mouth and throat: airway patent Cardiovascular: Normal peripheral perfusion, pericardial drain in place draining serosanguineous fluid Respiratory: no respiratory distress Gastrointestinal: Non distended Musculoskeletal: No deformity Results & Data Results & Data Vital Signs (Past 12 Hours) Vital Signs Temp Pulse Pulse Resp BP BP Pulse Ox 10/23/23 13:12 106 H 33 H 91 10/23/23 12:46 105/60 10/23/23 12:39 103 H 20 89 L 10/23/23 12:31 122/65 10/23/23 12:31 122/65 10/23/23 12:18 99 H 24 92 10/23/23 12:16 110/74 10/23/23 12:16 110/74 10/23/23 12:15 102 H 28 H 90 10/23/23 12:03 92 H 32 H 89 L 10/23/23 12:00 123/85 10/23/23 12:00 10/23/23 11:53 89 22 128/81 92 10/23/23 11:22 82 14 132/77 94 10/23/23 11:07 81 14 119/81 93 10/23/23 09:41 78 16 116/74 94 10/23/23 07:45 37.0 C 88 20 125/68 88 L 10/23/23 06:42 66 O2 Del Method O2 Flow Rate 10/23/23 13:12 10/23/23 12:46 10/23/23 12:39 10/23/23 12:31 10/23/23 12:31 10/23/23 12:18 Oxymask 5 10/23/23 12:16 10/23/23 12:16 10/23/23 12:15 Nasal Cannula 2 10/23/23 12:03 Nasal Cannula 2 10/23/23 12:00 10/23/23 12:00 Nasal Cannula 2 10/23/23 11:53 Nasal Cannula 2 10/23/23 11:22 Nasal Cannula 3 10/23/23 11:07 Nasal Cannula 3 10/23/23 09:41 Room Air 10/23/23 07:45 Room Air 10/23/23 06:42 Critical Care Results & Data Vital Signs (Past 12 Hours) Vital Signs Temp Pulse Pulse Resp BP BP Pulse Ox 10/23/23 13:12 106 H 33 H 91 10/23/23 12:46 105/60 10/23/23 12:39 103 H 20 89 L 10/23/23 12:31 122/65 10/23/23 12:31 122/65 10/23/23 12:18 99 H 24 92 10/23/23 12:16 110/74 10/23/23 12:16 110/74 10/23/23 12:15 102 H 28 H 90 10/23/23 12:03 92 H 32 H 89 L 10/23/23 12:00 123/85 10/23/23 12:00 10/23/23 11:53 89 22 128/81 92 10/23/23 11:22 82 14 132/77 94 10/23/23 11:07 81 14 119/81 93 10/23/23 09:41 78 16 116/74 94 10/23/23 07:45 37.0 C 88 20 125/68 88 L 10/23/23 06:42 66 O2 Del Method O2 Flow Rate 10/23/23 13:12 10/23/23 12:46 10/23/23 12:39 10/23/23 12:31 10/23/23 12:31 10/23/23 12:18 Oxymask 5 10/23/23 12:16 10/23/23 12:16 10/23/23 12:15 Nasal Cannula 2 10/23/23 12:03 Nasal Cannula 2 10/23/23 12:00 10/23/23 12:00 Nasal Cannula 2 10/23/23 11:53 Nasal Cannula 2 10/23/23 11:22 Nasal Cannula 3 10/23/23 11:07 Nasal Cannula 3 10/23/23 09:41 Room Air 10/23/23 07:45 Room Air 10/23/23 06:42 Lab & Micro Results (Past 24 Hours) RBC 3.67 M/uL (4.70-6.10) L 10/23/23 WBC 4.58 K/ul (4.8-10.8) L 10/23/23 Hgb 11.4 g/dl (14.0-18.0) L 10/23/23 Hct 34.1 % (42.0-52.0) L 10/23/23 MCV 92.9 fL (80.0-100.0) 10/23/23 MCH 31.1 pg (25.0-34.0) 10/23/23 MCHC 33.4 g/dL (32.0-36.0) 10/23/23 RDW Standard Deviation 41.5 fL (36.4-46.3) 10/23/23 RDW Coefficient of Variation 12.2 % (11.5-14.5) 10/23/23 Plt Count 161 K/uL (130-400) 10/23/23 MPV 9.0 fL (9.4-12.4) L 10/23/23 Neutrophils (%) (Auto) 65.8 % 10/22/23 Lymphocytes (%) (Auto) 17.1 % 10/22/23 Monocytes # (Auto) 0.65 K/uL (0.11-0.59) H 10/22/23 Eosinophils # (Auto) 0.14 K/uL (0.00-0.50) 10/22/23 Immature Granulocyte % (Auto) 0.4 % 10/22/23 Neutrophils # (Auto) 3.19 K/uL (1.40-6.50) 10/22/23 Lymphocytes # (Auto) 0.83 K/uL (1.20-3.40) L 10/22/23 Monocytes # (Auto) 0.65 K/uL (0.11-0.59) H 10/22/23 Eosinophils # (Auto) 0.14 K/uL (0.00-0.50) 10/22/23 Basophils # (Auto) 0.02 K/uL (0.00-0.20) 10/22/23 Immature Granulocyte # (Auto) 0.02 K/uL (0.01-0.20) 4 Na 138 mmol/L (136-145) 10/23/23 K 4.4 mmol/L (3.5-5.1) 10/23/23 Cl 107 mmol/L (98-107) 10/23/23 CO2 26 mmol/L (21-32) 10/23/23 Anion Gap 5 (3-11) 10/23/23 BUN 12 mg/dl (6-23) 10/23/23 Creatinine 0.79 mg/dl (0.6-1.4) 10/23/23 Estimated GFR ( Amer) 100.4 ml/min 10/23/23 Estimated GFR (Non-Af Amer) 86.6 ml/min 10/23/23 BUN/Creatinine Ratio 15.2 (10-20) 10/23/23 Glu 124 mg/dl (70-99(Fasting)) H 10/23/23 Ca 8.3 mg/dl (8.6-10.3) L 10/23/23 Total Bilirubin 0.8 mg/dl (0.2-1.0) 10/23/23 AST 30 U/L (13-39) 10/23/23 ALT 50 U/L (7-52) 10/23/23 Alkaline Phosphatase 72 U/L (34-104) 10/23/23 TP 6.8 gm/dl (6.0-8.3) 10/23/23 Albumin 3.6 gm/dl (3.4-5.0) 10/23/23 Globulin 3.2 gm/dl (2.5-4.0) 10/23/23 Albumin/Globulin Ratio 1.1 (0.9-2) 10/23/23 Calcium Level 8.3 mg/dl (8.6-10.3) L 10/23/23 06:24 Diagnostic Findings (Past 24 Hours) Chest CT 10/22/23 16:52 CT chest diagnostic w con CLINICAL HISTORY: aspiration, achalasia, stricture TECHNIQUE: Multidetector row helical CT of the chest was performed with intravenous contrast. Coronal and sagittal reformations were obtained. Automated dose lowering techniques and/or adjustment according to patient size were utilized for this exam. Comparison: Comparison is made to CT chest 01/11/2016 FINDINGS: Lungs and pleura: Atelectasis versus scarring is seen in the dependent portions of the lungs. A right fissural nodule is unchanged. Heart and pericardium: Large pericardial effusion is new from prior exam. Vessels: Pulmonary trunk measures 36 mm in diameter. Mediastinum and wendy: Subcentimeter lymph nodes are seen. Chest wall and lower neck: Unremarkable. Abdomen: A hiatal hernia is seen. Bones: Degenerative changes in the thoracic spine. IMPRESSION: Interval development of a large pericardial effusion. No definite evidence of cardiac tamponade not, however clinical correlation is recommended. ACT 112: Negative or not required by law. Electronically signed by: Petey Wan M.D. 10/22/2023 6:02 PM Soft Tissue Neck CT 10/22/23 16:52 CT soft tissue neck w con CLINICAL HISTORY: achalasia, stricture, previous EGD Technique: Axial CT images of the soft tissues of the neck were obtained following intravenous administration of 100 cc of Omnipaque 300. Automated dose lowering techniques and/or adjustment according to patient size were utilized for this exam. CT DOSE: 1253.68 mGy.cm Comparison: None available at the time of this dictation. Findings: The oropharynx, hypopharynx, larynx, and trachea are patent. No enlarged lymph nodes are seen. The parotid glands, submandibular glands, and thyroid gland are unremarkable. Imaged portions of the brain parenchyma are unremarkable. The paranasal sinuses and mastoid air cells are normal in appearance. Impression: No acute abnormality and in particular the esophagus is normal. ACT 112: Negative or not required by law. Electronically signed by: Petey Wan M.D. 10/22/2023 6:13 PM Chest X-Ray 10/23/23 11:25 XR chest 1V portable HISTORY: post pericardial drain COMPARISON: Chest CT 10/22/2023. FINDINGS: No pneumothorax. The cardiac silhouette is moderately enlarged. A l eft-sided pericardial drain has been placed in the interval. No evidence for pulmonary edema. Left basilar linear densities favor subsegmental atelectasis. No acute fractures. IMPRESSION: 1. Interval placement of a left-sided pericardial drain. 2. Moderate enlargement of the cardiac silhouette persists. 3. No pneumothorax. ACT 112: Negative or not required by law. Electronically signed by: Mariusz Liu M.D. 10/23/2023 12:07 PM RT Ventilator Mngmt (Last Documented) Ventilator Ordered Settings Respiratory Rate 33 10/23/23 13:12 Ventilator - PT Measurements Respiratory Rate 33 Coding Level of Care Code 07095 IN/OBS CONSULT LVL 4,60M Diagnoses Acute respiratory failure with hypoxia J96.01 Acute pericardial effusion I30.9 GERD (gastroesophageal reflux disease) K21.9 Benign prostatic hyperplasia with lower urinary tract symptoms N40.1 Carcinoma of bladder C67.9
--- NOTE | 2023-10-23 14:43 | Pulmonary Consultation ---
Date of Consultation October 23, 2023 Assessment & Plan (1) Acute pericardial effusion: (2) Abnormal chest CT: (3) Acute respiratory failure with hypoxia: Plan CT chest 10/22/2023 personally reviewed: Right upper lobe apical 1.7 cm left Atelectasis of the inferior lobe of the lingula Subsegmental atelectasis bilateral lower lobes more on the right side Large pericardial effusion No significant mediastinal lymphadenopathy -- Acute hypoxic respiratory failure Multifactorial Questionable aspiration at home as well as while in the ICU Does have collapse of the inferior lobe of the lingula, could be mechanical from the large pericardial effusion CRP 11.01, ESR 55 Respiratory bio fire negative for everything -- Abnormal chest CT Patient seems to have atelectasis of the inferior lobe of the lingula New compared to CT chest in 2016. Could be consequent to compression by large pericardial effusion Recommend repeating a CT chest in 6-8 weeks Plan: Continue with O2 supplementation to keep oxygen saturation around 90-92% Incentive spirometry will be beneficial. If the patient gets hypoxic moving forward then I would recommend to order a CTA. The probability of patient having pulmonary emboli is low. I did look at the chest x-ray which was done following the hypoxic event in the ICU. There is no significant change compared to before. No signs of pneumothorax. Early aspiration episode would not show any changes on the chest x-ray right away. Recommend repeating a chest x-ray in the morning. Please note the above document was generated using voice recognition software. It may contain grammatical, syntax or spelling errors.Any formal questions or concerns about the content, text or information contained within the body of this dictation should be directly addressed to the provider for clarification. History of Present Illness Attending Physician: Wallace Suarez History of Present Illness 78-year-old male present to the hospital with shortness of breath Past medical history: BPH, GERD, gastritis Pulmonary consulted for hypoxia Patient was found to have large pericardial effusion for which she went to cardiac cath and had pericardial drainage done At the time of examination patient was saturating 93-94% on 5 L nasal cannula, I was gradually able to titrate down to 3 L Patient's daughter and are also in the room. Patient daughter is a physician. Denied any shortness of breath prior to coming to the hospital. There is questionable aspiration history as per the daughter. Patient was drinking water when he felt that he choked on it and started to cough this 20 saturation went down. Repeat chest x-ray which was done after the choking episode did not show any worsening compared to when he presented to the hospital. Did complain of some chest pain at the site of the drain. No fever no chills No night sweats, no unintentional weight loss No headache, no blurry vision No personal or family history of any autoimmune disease like lupus, sarcoid, Sjogren's, rheumatoid No Raynaud's Social history: Lifetime non-smoker Originally from [facility]. Has been in [facility] for most 33 years Allergies Allergy/AdvReac Type Severity Reaction Status Date / Time No Known Drug Allergies Allergy Verified 10/18/23 12:29 Home Medications Medication Instructions Recorded Confirmed Type glucosamine sulfate 500 mg capsule 500 mg PO Q OTHER DAY 08/31/18 10/22/23 History mecobalamin (vitamin B12) 1,000 1,000 mcg PO DAILY 08/10/23 10/22/23 History mcg chewable tablet multivitamin 1 tab PO DAILY 08/10/23 10/22/23 History tamsulosin 0.4 mg capsule 0.4 mg PO Q OTHER DAY 08/10/23 10/22/23 History cholecalciferol (vitamin D3) 50 50 mcg PO DAILY 08/31/23 10/22/23 History mcg (2,000 unit) capsule pantoprazole 40 mg tablet,delayed 40 mg PO QAM #30 tabs 09/13/23 10/22/23 Rx release Patient History Medical History DJD (degenerative joint disease), thoracic Laryngopharyngeal reflux disease Vitamin D deficiency Hx of thrombocytopenia (2018) Cyst of kidney, acquired Solitary pulmonary nodule pt unaware History of colon polyps Hx of bladder cancer (2018) sx/chemo Low vitamin B12 level COVID (06/2022) hx- no hosp; resolved Surgical History Hx of oral surgery dental implants History of esophagogastroduodenoscopy (EGD) History of cystoscopy History of colonoscopy History of wisdom tooth extraction History of bladder surgery for tumor S/P tonsillectomy Family History Father Stroke Other No family history of adverse response to anesthesia Denies family history of Ovarian cancer Prostate cancer Myocardial infarction Breast cancer Colorectal cancer Social History Smoking Status: Never smoker Second Hand Exposure: No; Do You Dip or Chew Tobacco: No; Hx Alcohol Use: Yes Alcohol type: wine Hx Substance Use: No Preferred Language: Qatari Communication Ability: Effective Visual Impairment: No Limitations Hearing Ability: Normal Preschool Substitute Teacher Required: No Beliefs That Will Affect Care: None marital status: Current Living Situation: Spouse current occupational status: retired Feels Safe at Home: Yes Safety Concerns: Feels Safe At This Time Dental Care, Regularly: Yes Physical Activity Frequency: Daily Seatbelt Use: always Sunscreen Use: No Assistive Devices: Glasses Review of Systems 2 Review of Systems: All systems reviewed & are unremarkable except as noted in HPI & below Physical Exam 2 Physical Exam: Constitutional: No acute distress HEENT: EOMI, PERRLA Respiratory system: Good air entry bilaterally, no wheeze, no rhonchi, mild crackles bilateral lower lobes CVS: S1-S2 positive, no murmurs or gallops Abdomen: Soft, nontender, nondistended, positive bowel sounds x4 Extremities: +2 pulses bilaterally radialis/ dorsalis pedis, no cyanosis, no edema Neuro: Awake alert oriented x3 Psych: Normal mood and affect G/U: No Chacko Skin: no rashes, warm and dry Lymphatic: no cervical or axillary lymphadenopathy Results & Data Results & Data Vital Signs (Past 12 Hours) Vital Signs Temp Pulse Pulse Resp BP BP Pulse Ox 10/23/23 13:12 106 H 33 H 91 10/23/23 12:46 105/60 10/23/23 12:39 103 H 20 89 L 10/23/23 12:31 122/65 10/23/23 12:31 122/65 10/23/23 12:18 99 H 24 92 10/23/23 12:16 110/74 10/23/23 12:16 110/74 10/23/23 12:15 102 H 28 H 90 10/23/23 12:03 92 H 32 H 89 L 10/23/23 12:00 123/85 10/23/23 12:00 10/23/23 11:53 89 22 128/81 92 10/23/23 11:22 82 14 132/77 94 10/23/23 11:07 81 14 119/81 93 10/23/23 09:41 78 16 116/74 94 10/23/23 07:45 37.0 C 88 20 125/68 88 L 10/23/23 06:42 66 O2 Del Method O2 Flow Rate 10/23/23 13:12 10/23/23 12:46 10/23/23 12:39 10/23/23 12:31 10/23/23 12:31 10/23/23 12:18 Oxymask 5 10/23/23 12:16 10/23/23 12:16 10/23/23 12:15 Nasal Cannula 2 10/23/23 12:03 Nasal Cannula 2 10/23/23 12:00 10/23/23 12:00 Nasal Cannula 2 10/23/23 11:53 Nasal Cannula 2 10/23/23 11:22 Nasal Cannula 3 10/23/23 11:07 Nasal Cannula 3 10/23/23 09:41 Room Air 10/23/23 07:45 Room Air 10/23/23 06:42 Laboratory Results 10/23/23 06:24 10/23/23 06:24 PG Care Time/CCT Total # of Minutes Spent Total Time Spent with Patient: Total time spent is greater than 50% in coordination of care (as documented) at patient's floor/unit and/or counseling patient: [place] [address] INT INP/OBS CARE 3/75MIN Patient Type New Diagnoses Acute pericardial effusion I30.[address] R93.89 Acute respiratory failure with hypoxia J96.01
[2023-10-23 15:00] LABS: Thyroid Stimulating Hormone 1.097 uIu/ml (0.300-4.500)
--- NOTE | 2023-10-23 15:16 | XRay Report ---
XR chest 1V portable HISTORY: 78 years-old Male hypoxia acute shortness of breath COMPARISON: 10/23/2023 TECHNIQUE: AP view of the chest FINDINGS: Left-sided pericardial drain redemonstrated. Unchanged enlargement of the cardiac silhouette. Pulmona ry vascular congestion. No pneumothorax. Probable trace pleural effusions with mild left basilar opac ities. IMPRESSION: 1. Unchanged size of the cardiac silhouette with pericardial drain. 2. Trace pleural effusions with mild left basilar opacities. ACT 112: Negative or not required by law. The above report was generated using voice recognition software. It may contain grammatical, syntax o r spelling errors. Electronically signed by: Trev Gardner M.D. 10/23/2023 3:15 PM
--- NOTE | 2023-10-23 15:57 | Electrocardiogram Report ---
Test Reason : Blood Pressure : / mmHG Vent. Rate : 077 BPM Atrial Rate : 077 BPM P-R Int : 188 ms QRS Dur : 118 ms QT Int : 340 ms P-R-T Axes : 037 -10 022 degrees QTc Int : 384 ms Normal sinus rhythm Low voltage QRS Abnormal ECG No previous ECGs available Confirmed by Brennan Wilson ([id number]) on 10/23/2023 3:56:57 PM Referred By: REFERRED SELF Confirmed By:Alex Wilson
--- NOTE | 2023-10-23 16:06 | Electrocardiogram Report ---
Test Reason : Blood Pressure : / mmHG Vent. Rate : 075 BPM Atrial Rate : 075 BPM P-R Int : 200 ms QRS Dur : 114 ms QT Int : 380 ms P-R-T Axes : 041 -15 013 degrees QTc Int : 424 ms Normal sinus rhythm Low voltage QRS possible Inferior infarct , age undetermined Abnormal ECG When compared with ECG of 22-OCT-2023 18:15, (unconfirmed) Inferior infarct is now Present Confirmed by Brennan Wilson ([id number]) on 10/23/2023 4:06:09 PM Referred By: REFERRED SELF Confirmed By:Alex Wilson
[2023-10-23] MEDS: COLCHICINE 0.6 MG TAB PO SCH (21:11)
--- NOTE | 2023-10-23 22:04 | Hospitalist Progress Note ---
Date of Service October 23, 2023 Assessment & Plan (1) Acute pericardial effusion: (2) Gastritis: (3) GERD (gastroesophageal reflux disease): (4) Thrombocytopenia: (5) Benign prostatic hyperplasia with lower urinary tract symptoms: (6) Carcinoma of bladder: Plan Hunter is a 78M w/ PMH of gastritis, GERD, BPH w/ LUTS, and bladder carcinoma s/p resection who presents for evaluation after a choking episode at home. Pericardial Effusion - Presenting with increasing chest fullness/pressure and cough w/ brief conversation, progressed to choking episode prior to arrival NPO on admission pending Cardiology intervention, would recommend speech eval prior to advancing diet - Chest CT indicating large pericardial effusion No evidence of cardiac tamponade on CT Clinically w/o hypotension or JVD to support tamponade, but heart sounds are muffled on exam - Hemodynamically stable on room air, asymptomatic at rest - Underlying cause undetermined, workup ongoing: ESR, CRP, BRADLEY, RF, Coxsackie, and Lyme/Babesia/Anaplasma pending No leukocytosis or renal abnormality on presenting labs Urinalysis pending BioFire negative - Suspect viral URI leading to pericarditis followed by pericardial effusion Will start Colchicine 1 mg Q12 for 24 hours followed by 0.5 mg BID Will start low dose steroids, Prednisone 20 mg PO daily, would titrate duration to inflammatory markers - Interventional Cardiology consulted, recommending Echocardiogram Echocardiogram ordered STAT 08/25/23 Echocardiogram: EF 60-65%, Aortic Root enlarged to 4.5 cm w/ trace insufficiency 08/25/23 Nuclear Stress Echo: Negative for ischemia Dr. Wright performed pericardiocenthesis. Drain in place currently in the ICU. Awaiting serologies. Unsure of cause. - Immediate drainage not acutely indicated d/t lack of hemodynamic compromise or unstable symptoms - Continue with conservative measures Monitor on PCU/telemetry Hypoxia: acute repsiratory failure. may have been due to aspiration. will have a video swallow tomorrow. Chronic Conditions: - GERD: PPI changed to IV - BPH w/ LUTS: continue Tamsulosin - Bladder Carcinoma: S/p resection, continues to follow w/ Urology, no active disease > 1 year Code: Full Diet: NPO Dispo: PCU/tele Consults: Cardiology Admission and Anticipated Discharge Date Admission Date: October 22, 2023 Subjective Patient reports having cough after his pericardiocenthesis. Family is at bedside. Nurse states patient needed an oxymask after he tried to have lunch. Physical Exam Physical Exam: General: Alert. On oxymask. NAD. Head: Atraumatic Ears, nose, mouth and throat: airway patent Cardiovascular: pericardial drain in place draining serosanguineous fluid Respiratory: no respiratory distress Gastrointestinal: Non distended Musculoskeletal: moves all extremties. Results & Data Results & Data Vital Signs (Past 12 Hours) Vital Signs Temp Pulse Pulse Resp BP BP Pulse Ox 10/23/23 18:06 98 H 21 90 10/23/23 18:00 104/69 10/23/23 17:54 100 H 20 92 10/23/23 17:03 101 H 27 H 92 10/23/23 17:01 100/72 10/23/23 17:01 100/72 10/23/23 16:42 97 H 31 H 91 10/23/23 16:15 98/65 L 10/23/23 16:15 98/65 L 10/23/23 16:12 96 H 24 92 10/23/23 16:00 94/65 L 10/23/23 16:00 37.2 C 10/23/23 16:00 101 H 10/23/23 15:57 94 H 21 92 10/23/23 15:45 103/69 10/23/23 15:45 103/69 10/23/23 15:36 98 H 29 H 92 10/23/23 15:30 97/71 L 10/23/23 15:24 98 H 29 H 93 10/23/23 15:15 111/64 10/23/23 15:06 100 H 22 90 10/23/23 15:02 93/65 L 10/23/23 15:00 89/70 L 10/23/23 14:39 100 H 29 H 92 10/23/23 14:00 97 H 25 H 92 10/23/23 13:12 106 H 33 H 91 10/23/23 12:46 105/60 10/23/23 12:39 103 H 20 89 L 10/23/23 12:31 122/65 10/23/23 12:31 122/65 10/23/23 12:18 99 H 24 92 10/23/23 12:16 110/74 10/23/23 12:16 110/74 10/23/23 12:15 102 H 28 H 90 10/23/23 12:03 92 H 32 H 89 L 10/23/23 12:00 37 C 10/23/23 12:00 123/85 10/23/23 12:00 10/23/23 11:53 89 22 128/81 92 10/23/23 11:22 82 14 132/77 94 10/23/23 11:07 81 14 119/81 93 O2 Del Method O2 Flow Rate 10/23/23 18:06 Nasal Cannula 3 10/23/23 18:00 10/23/23 17:54 10/23/23 17:03 Nasal Cannula 3 10/23/23 17:01 10/23/23 17:01 10/23/23 16:42 10/23/23 16:15 10/23/23 16:15 10/23/23 16:12 10/23/23 16:00 10/23/23 16:00 10/23/23 16:00 10/23/23 15:57 10/23/23 15:45 10/23/23 15:45 10/23/23 15:36 Nasal Cannula 3 10/23/23 15:30 10/23/23 15:24 10/23/23 15:15 10/23/23 15:06 Oxymask 4 10/23/23 15:02 10/23/23 15:00 10/23/23 14:39 10/23/23 14:00 10/23/23 13:12 10/23/23 12:46 10/23/23 12:39 10/23/23 12:31 10/23/23 12:31 10/23/23 12:18 Oxymask 5 10/23/23 12:16 10/23/23 12:16 10/23/23 12:15 Nasal Cannula 2 10/23/23 12:03 Nasal Cannula 2 10/23/23 12:00 10/23/23 12:00 10/23/23 12:00 Nasal Cannula 2 10/23/23 11:53 Nasal Cannula 2 10/23/23 11:22 Nasal Cannula 3 10/23/23 11:07 Nasal Cannula 3 PG Care Time/CCT Total # of Minutes Spent Total Time Spent with Patient: Total time spent is greater than 50% in coordination of care (as documented) at patient's floor/unit and/or counseling patient: Coding Level of Care Code 73637 SUB INP/OBS CARE 350MIN Diagnoses Acute pericardial effusion I30.9 Gastritis K29.70 GERD (gastroesophageal reflux disease) K21.9 Thrombocytopenia D69.6 Benign prostatic hyperplasia with lower urinary tract symptoms N40.1 Carcinoma of bladder C67.9 Time Spent (min) 50
[2023-10-24 04:44] LABS: Basophils # (auto) 0.02 K/uL (0.00-0.20); Basophils % (auto) 0.3 %; Eosinophils # (auto) 0.06 K/uL (0.00-0.50); Eosinophils % (auto) 0.9 %; Hematocrit (blood only) 32.7 % (42.0-52.0); Hemoglobin 11.1 g/dl (14.0-18.0); Immature Granulocytes # (auto) 0.02 K/uL (0.01-0.20); Immature Granulocytes % (auto) 0.3 %; Lymphocytes # (auto) 1.08 K/uL (1.20-3.40); Lymphocytes % (auto) 16.8 %; Mean Corpuscular Hemoglobin 31.4 pg (25.0-34.0); Mean Corpuscular Hgb Conc 33.9 g/dL (32.0-36.0); Mean Corpuscular Volume 92.6 fL (80.0-100.0); Mean Platelet Volume 8.9 fL (9.4-12.4); Monocytes # (auto) 0.67 K/uL (0.11-0.59); Monocytes % (auto) 10.5 %; Neutrophils # (auto) 4.56 K/uL (1.40-6.50); Neutrophils % (auto) 71.2 %; Platelet Count 181 K/uL (130-400); RDW Coefficient of Variation 12.4 % (11.5-14.5); RDW Standard Deviation 42.2 fL (36.4-46.3); Red Blood Count 3.53 M/uL (4.70-6.10); White Blood Count 6.41 K/ul (4.8-10.8)
[2023-10-24 05:00] LABS: BUN Creatinine Ratio 17.6 (10-20); Calcium 7.7 mg/dl (8.6-10.3); Creatinine Clr Calc Pharmacy 70.3 ml/min; Est GFR (African American) 93.9 ml/min; Magnesium 2.2 mg/dl (1.7-2.4); Potassium 4.1 mmol/L (3.5-5.1)
--- NOTE | 2023-10-24 07:54 | Pulmonology Progress Note ---
Date of Service October 24, 2023 Assessment & Plan (1) Acute pericardial effusion: (2) Abnormal chest CT: (3) Acute respiratory failure with hypoxia: Plan CT chest 10/22/2023 personally reviewed: Right upper lobe apical 1.7 cm left Atelectasis of the inferior lobe of the lingula Subsegmental atelectasis bilateral lower lobes more on the right side Large pericardial effusion No significant mediastinal lymphadenopathy -- Acute hypoxic respiratory failure Multifactorial Questionable aspiration at home as well as while in the ICU Does have collapse of the inferior lobe of the lingula, could be mechanical from the large pericardial effusion CRP 11.01, ESR 55 Respiratory bio fire negative for everything -- Abnormal chest CT Patient seems to have atelectasis of the inferior lobe of the lingula New compared to CT chest in 2016. Could be consequent to compression by large pericardial effusion Recommend repeating a CT chest in 6-8 weeks Plan: No significant change in the chest x-ray. Mild improved aeration retrocardiac on the left side. Continue with O2 supplementation to keep oxygen saturation around 90-92% for start titrating down oxygen Continue with incentive spirometry Case was discussed with RN at bedside Please note the above document was generated using voice recognition software. It may contain grammatical, syntax or spelling errors.Any formal questions or concerns about the content, text or information contained within the body of this dictation should be directly addressed to the provider for clarification. Admission and Anticipated Discharge Date Admission Date: October 22, 2023 Subjective Patient seen and examined at bedside. No acute distress, no adverse events overnight He was saturating 93-94% on 3 L nasal cannula, I went down to 2 L He had his breakfast without any issues. No cheek choking like at this dose Does complain of discomfort at the site of pericardial drainage. Has been afebrile Denies any headache, no dizziness No nausea or vomiting Review of Systems 2 Review of Systems: All systems reviewed & are unremarkable except as noted in Subjective Physical Exam 2 Physical Exam: Constitutional: No acute distress HEENT: EOMI, PERRLA Respiratory system: Good air entry bilaterally, no wheeze, no rhonchi, mild crackles bilateral lower lobes CVS: S1-S2 positive, no murmurs or gallops Abdomen: Soft, nontender, nondistended, positive bowel sounds x4 Extremities: +2 pulses bilaterally radialis/ dorsalis pedis, no cyanosis, no edema Neuro: Awake alert oriented x3 Psych: Normal mood and affect G/U: No Chacko Skin: no rashes, warm and dry Lymphatic: no cervical or axillary lymphadenopathy Results & Data Results & Data Vital Signs (Past 12 Hours) Vital Signs Temp Pulse Pulse Resp BP BP Pulse Ox 10/24/23 07:52 36.6 C 10/24/23 07:00 69 23 92 10/24/23 07:00 99/71 L 10/24/23 04:00 36.6 C 70 19 104/63 94 10/24/23 03:30 73 19 104/63 94 10/24/23 03:00 95/64 L 92 10/24/23 02:45 82 10/24/23 02:00 82 25 H 103/70 92 10/24/23 01:33 79 24 92 10/24/23 01:15 80 23 91 10/24/23 01:04 79 20 100/68 92 10/24/23 01:00 100/68 10/24/23 01:00 78 20 92 10/24/23 00:39 79 19 93 10/24/23 00:06 81 21 92 10/24/23 00:01 36.5 C 10/24/23 00:00 96/63 L 10/24/23 00:00 83 10/23/23 23:54 80 19 93 10/23/23 23:39 79 19 93 10/23/23 23:03 86 27 H 93 10/23/23 23:02 105/75 10/23/23 22:57 85 20 93 10/23/23 22:30 86 23 94 10/23/23 22:00 93/69 L 10/23/23 22:00 85 22 94 10/23/23 21:45 87 23 93 10/23/23 21:00 95/65 L 10/23/23 21:00 84 22 93 10/23/23 20:30 22 93 10/23/23 20:15 81 19 92 10/23/23 20:01 97/70 L O2 Del Method O2 Flow Rate 10/24/23 07:52 10/24/23 07:00 Oxymask 3 10/24/23 07:00 10/24/23 04:00 Oxymask 3 10/24/23 03:30 Oxymask 3 10/24/23 03:00 Oxymask 3 10/24/23 02:45 10/24/23 02:00 Oxymask 3 10/24/23 01:33 10/24/23 01:15 Oxymask 3 10/24/23 01:04 Oxymask 3 10/24/23 01:00 10/24/23 01:00 10/24/23 00:39 10/24/23 00:06 Oxymask 3 10/24/23 00:01 10/24/23 00:00 10/24/23 00:00 10/23/23 23:54 10/23/23 23:39 10/23/23 23:03 Oxymask 3 10/23/23 23:02 10/23/23 22:57 Oxymask 3 10/23/23 22:30 10/23/23 22:00 10/23/23 22:00 Oxymask 3 10/23/23 21:45 10/23/23 21:00 10/23/23 21:00 10/23/23 20:30 Oxymask 3 10/23/23 20:15 10/23/23 20:01 Laboratory Results 10/24/23 04:14 10/24/23 04:14 PG Care Time/CCT Total # of Minutes Spent Total Time Spent with Patient: Total time spent is greater than 50% in coordination of care (as documented) at patient's floor/unit and/or counseling patient: Coding Level of Care Code 81801 SUB INP/OBS CARE 2/35MIN Diagnoses Acute pericardial effusion I30.[address] R93.89 Acute respiratory failure with hypoxia J96.01
--- NOTE | 2023-10-24 08:24 | XRay Report ---
XR chest 1V portable HISTORY: Hypoxia. COMPARISON: Chest 10/23/2023. FINDINGS: A left-sided pericardial drain is again noted is unchanged in position. No pneumothorax. Th e cardiac silhouette has slightly decreased in size. Small bilateral pleural effusions and bibasilar densities persist. No evidence for pulmonary edema. IMPRESSION: 1. Slight decrease in size of the cardiac silhouette. 2. A pericardial drain is unchanged in position. ACT 112: Negative or not required by law. Electronically signed by: Mariusz Liu M.D. 10/24/2023 8:23 AM
--- NOTE | 2023-10-24 08:43 | Critical Care Progress Note ---
Date of Service October 24, 2023 Assessment & Plan (1) Acute respiratory failure with hypoxia: Plan: Reason Critically Ill: 78-year-old male status post pericardial drainage PLAN: Resp: Acute hypoxic respiratory failure: -Wean oxygen as tolerated -Pulmonary consult: Reviewed, respiratory BioFire panel negative CV: Acute pericardial effusion -Status post drainage -Fluid studies pending Fluids/Renal: Mild hypocalcemia ID: Serologies (coxsackie and EBV) pending on pericardial fluid, Monospot negative GI/Nutrition: Reflux -Speech evaluation possible video laryngoscopy for questionable silent aspiration Heme: New onset anemia: Normochromic normocytic Reported chronic leukopenia DVT prophylaxis: SCDs, chemoprophylaxis contraindicated at this time Endocrine: ICU hyperglycemia protocol TSH within normal limits -Rheumatoid factor and BRADLEY panel pending Vascular access: Peripheral IV Code Status: Full code Disposition: ICU while drain in place (2) Acute pericardial effusion: (3) GERD (gastroesophageal reflux disease): (4) Benign prostatic hyperplasia with lower urinary tract symptoms: (5) Carcinoma of bladder: Admission and Anticipated Discharge Date Admission Date: October 22, 2023 Subjective Subjectively less short of breath. Would like to get up and out of bed. Approximately 150 mL serosanguineous fluid in the bag: This is total output since placement Physical Exam Physical Exam: General: Alert. nontoxic. Skin: Warm, dry, Head: Atraumatic Ears, nose, mouth and throat: airway patent Cardiovascular: Normal peripheral perfusion, pericardial drain in place draining serosanguineous fluid Respiratory: no respiratory distress Gastrointestinal: Non distended Musculoskeletal: No deformity Results & Data Results & Data Vital Signs (Past 12 Hours) Vital Signs Temp Pulse Pulse Resp BP BP Pulse Ox 10/24/23 07:52 36.6 C 10/24/23 07:00 69 23 92 10/24/23 07:00 99/71 L 10/24/23 04:00 36.6 C 70 19 104/63 94 10/24/23 03:30 73 19 104/63 94 10/24/23 03:00 95/64 L 92 10/24/23 02:45 82 10/24/23 02:00 82 25 H 103/70 92 10/24/23 01:33 79 24 92 10/24/23 01:15 80 23 91 10/24/23 01:04 79 20 100/68 92 10/24/23 01:00 100/68 10/24/23 01:00 78 20 92 10/24/23 00:39 79 19 93 10/24/23 00:06 81 21 92 10/24/23 00:01 36.5 C 10/24/23 00:00 96/63 L 10/24/23 00:00 83 10/23/23 23:54 80 19 93 10/23/23 23:39 79 19 93 10/23/23 23:03 86 27 H 93 10/23/23 23:02 105/75 10/23/23 22:57 85 20 93 10/23/23 22:30 86 23 94 10/23/23 22:00 93/69 L 10/23/23 22:00 85 22 94 10/23/23 21:45 87 23 93 10/23/23 21:00 95/65 L 10/23/23 21:00 84 22 93 O2 Del Method O2 Flow Rate 10/24/23 07:52 10/24/23 07:00 Oxymask 3 10/24/23 07:00 10/24/23 04:00 Oxymask 3 10/24/23 03:30 Oxymask 3 10/24/23 03:00 Oxymask 3 10/24/23 02:45 10/24/23 02:00 Oxymask 3 10/24/23 01:33 10/24/23 01:15 Oxymask 3 10/24/23 01:04 Oxymask 3 10/24/23 01:00 10/24/23 01:00 10/24/23 00:39 10/24/23 00:06 Oxymask 3 10/24/23 00:01 10/24/23 00:00 10/24/23 00:00 10/23/23 23:54 10/23/23 23:39 10/23/23 23:03 Oxymask 3 10/23/23 23:02 10/23/23 22:57 Oxymask 3 10/23/23 22:30 10/23/23 22:00 10/23/23 22:00 Oxymask 3 10/23/23 21:45 10/23/23 21:00 10/23/23 21:00 Critical Care Results & Data Vital Signs (Past 12 Hours) Vital Signs Temp Pulse Pulse Resp BP BP Pulse Ox 10/24/23 07:52 36.6 C 10/24/23 07:00 69 23 92 10/24/23 07:00 99/71 L 10/24/23 04:00 36.6 C 70 19 104/63 94 10/24/23 03:30 73 19 104/63 94 10/24/23 03:00 95/64 L 92 10/24/23 02:45 82 10/24/23 02:00 82 25 H 103/70 92 10/24/23 01:33 79 24 92 10/24/23 01:15 80 23 91 10/24/23 01:04 79 20 100/68 92 10/24/23 01:00 100/68 10/24/23 01:00 78 20 92 10/24/23 00:39 79 19 93 10/24/23 00:06 81 21 92 10/24/23 00:01 36.5 C 10/24/23 00:00 96/63 L 10/24/23 00:00 83 10/23/23 23:54 80 19 93 10/23/23 23:39 79 19 93 10/23/23 23:03 86 27 H 93 10/23/23 23:02 105/75 10/23/23 22:57 85 20 93 10/23/23 22:30 86 23 94 10/23/23 22:00 93/69 L 10/23/23 22:00 85 22 94 10/23/23 21:45 87 23 93 10/23/23 21:00 95/65 L 10/23/23 21:00 84 22 93 O2 Del Method O2 Flow Rate 10/24/23 07:52 10/24/23 07:00 Oxymask 3 10/24/23 07:00 10/24/23 04:00 Oxymask 3 10/24/23 03:30 Oxymask 3 10/24/23 03:00 Oxymask 3 10/24/23 02:45 10/24/23 02:00 Oxymask 3 10/24/23 01:33 10/24/23 01:15 Oxymask 3 10/24/23 01:04 Oxymask 3 10/24/23 01:00 10/24/23 01:00 10/24/23 00:39 10/24/23 00:06 Oxymask 3 10/24/23 00:01 10/24/23 00:00 10/24/23 00:00 10/23/23 23:54 10/23/23 23:39 10/23/23 23:03 Oxymask 3 10/23/23 23:02 10/23/23 22:57 Oxymask 3 10/23/23 22:30 10/23/23 22:00 10/23/23 22:00 Oxymask 3 10/23/23 21:45 10/23/23 21:00 10/23/23 21:00 Lab & Micro Results (Past 24 Hours) RBC 3.53 M/uL (4.70-6.10) L 10/24/23 WBC 6.41 K/ul (4.8-10.8) 10/24/23 Hgb 11.1 g/dl (14.0-18.0) L 10/24/23 Hct 32.7 % (42.0-52.0) L 10/24/23 MCV 92.6 fL (80.0-100.0) 10/24/23 MCH 31.4 pg (25.0-34.0) 10/24/23 MCHC 33.9 g/dL (32.0-36.0) 10/24/23 RDW Standard Deviation 42.2 fL (36.4-46.3) 10/24/23 RDW Coefficient of Variation 12.4 % (11.5-14.5) 10/24/23 Plt Count 181 K/uL (130-400) 10/24/23 MPV 8.9 fL (9.4-12.4) L 10/24/23 Neutrophils (%) (Auto) 71.2 % 10/24/23 Lymphocytes (%) (Auto) 16.8 % 10/24/23 Monocytes # (Auto) 0.67 K/uL (0.11-0.59) H 10/24/23 Eosinophils # (Auto) 0.06 K/uL (0.00-0.50) 10/24/23 Immature Granulocyte % (Auto) 0.3 % 10/24/23 Neutrophils # (Auto) 4.56 K/uL (1.40-6.50) 10/24/23 Lymphocytes # (Auto) 1.08 K/uL (1.20-3.40) L 10/24/23 Monocytes # (Auto) 0.67 K/uL (0.11-0.59) H 10/24/23 Eosinophils # (Auto) 0.06 K/uL (0.00-0.50) 10/24/23 Basophils # (Auto) 0.02 K/uL (0.00-0.20) 10/24/23 Immature Granulocyte # (Auto) 0.02 K/uL (0.01-0.20) 4 Na 137 mmol/L (136-145) 10/24/23 K 4.1 mmol/L (3.5-5.1) 10/24/23 Cl 109 mmol/L (98-107) H 10/24/23 CO2 24 mmol/L (21-32) 10/24/23 Anion Gap 4 (3-11) 10/24/23 BUN 16 mg/dl (6-23) 10/24/23 Creatinine 0.91 mg/dl (0.6-1.4) 10/24/23 Estimated GFR ( Amer) 93.9 ml/min 10/24/23 Estimated GFR (Non-Af Amer) 81.0 ml/min 10/24/23 BUN/Creatinine Ratio 17.6 (10-20) 10/24/23 Glu 95 mg/dl (70-99(Fasting)) 10/24/23 Ca 7.7 mg/dl (8.6-10.3) L 10/24/23 Mg 2.2 mg/dl (1.7-2.4) 10/24/23 04:14 Calcium Level 7.7 mg/dl (8.6-10.3) L 10/24/23 04:14 Microbiology 10/23/23 10:44 Fungal Smear - Final Pericardial Fluid 10/23/23 10:44 Gram Stain - Final Pericardial Fluid Diagnostic Findings (Past 24 Hours) Chest X-Ray 10/23/23 11:25 XR chest 1V portable HISTORY: post pericardial drain COMPARISON: Chest CT 10/22/2023. FINDINGS: No pneumothorax. The cardiac silhouette is moderately enlarged. A left-sided pericardial drain has been placed in the interval. No evidence for pulmonary edema. Left basilar linear densities favor subsegmental atelectasis. No acute fractures. IMPRESSION: 1. Interval placement of a left-sided pericardial drain. 2. Moderate enlargement of the cardiac silhouette persists. 3. No pneumothorax. ACT 112: Negative or not required by law. Electronically signed by: Mariusz Liu M.D. 10/23/2023 12:07 PM Chest X-Ray 10/23/23 13:42 XR chest 1V portable HISTORY: 78 years-old Male hypoxia acute shortness of breath COMPARISON: 10/23/2023 TECHNIQUE: AP view of the chest FINDINGS: Left-sided pericardial drain redemonstrated. Unchanged enlargement of the cardiac silhouette. Pulmonary vascular congestion. No pneumothorax. Probable trace pleural effusions with mild left basilar opacities. IMPRESSION: 1. Unchanged size of the cardiac silhouette with pericardial drain. 2. Trace pleural effusions with mild left basilar opacities. ACT 112: Negative or not required by law. The above report was generated using voice recognition software. It may contain grammatical, syntax or spelling errors. Electronically signed by: Trev Gardner M.D. 10/23/2023 3:15 PM Chest X-Ray 10/24/23 07:00 XR chest 1V portable HISTORY: Hypoxia. COMPARISON: Chest 10/23/2023. FINDINGS: A left-sided pericardial drain is again noted is unchanged in position. No pneumothorax. The cardiac silhouette has slightly decreased in size. Small bilateral pleural effusions and bibasilar densities persist. No evidence for pulmonary edema. IMPRESSION: 1. Slight decrease in size of the cardiac silhouette. 2. A pericardial drain is unchanged in position. ACT 112: Negative or not required by law. Electronically signed by: Mariusz Liu M.D. 10/24/2023 8:23 AM I & O Totals 24 Hours 10/23/23 10/24/23 10/25/23 06:59 06:59 06:59 Intake Total 1047.5 / 1047.5 Output Total 365 / 365 275 / 275 Balance 682.5 / 682.5 -275 / -275 Cumulative 10/22/23 16:33 thru 10/24/23 07:51 Intake Total 1047.5 Output Total 640 Balance 407.5 RT Ventilator Mngmt (Last Documented) Ventilator Ordered Settings Respiratory Rate 23 10/24/23 07:00 Ventilator - PT Measurements Respiratory Rate 23 Coding Level of Care Code 66073 SUB INP/OBS CARE 2/35MIN Diagnoses Acute respiratory failure with hypoxia J96.01 Acute pericardial effusion I30.9 GERD (gastroesophageal reflux disease) K21.9 Benign prostatic hyperplasia with lower urinary tract symptoms N40.1 Carcinoma of bladder C67.9
--- NOTE | 2023-10-24 10:21 | XCELERA ---
[id number] \\[facility]_PDF_Reports\[id number]___[id number]
--- NOTE | 2023-10-24 11:20 | XCELERA ---
[id number] \\[facility]_PDF_Reports\[id number]}___[id number]
--- NOTE | 2023-10-24 11:20 | XCELERA ---
[id number] \\[facility]_PDF_Reports\[id number]}___[id number]
[2023-10-24] MEDS: fentaNYL citrate PF 100 MCG/2 ML VIAL IV STA (11:35)
[2023-10-24 13:56] LABS: Epstein Barr Virus Early Ag Ab <9.00 U/mL
--- NOTE | 2023-10-24 16:16 | Cardiology Progress Note ---
Date of Service October 24, 2023 Assessment & Plan (1) Acute pericardial effusion: Plan: Status post pericardiocentesis. Trivial residual effusion on echo. Pigtail has been successfully removed without complication. Awaiting lab results from the pericardial fluid. Further recommendations pending those results. Patient will be seen by me in follow-up as an outpatient and I also suggest that we tentatively schedule him for limited echocardiogram to be performed here at the hospital in 2 weeks. (2) Acute respiratory failure with hypoxia: Plan: Patient has not been able to maintain his oxygen level. The CT scan performed here to my view suggested small pleural effusion on the left. He has been on IV fluids post pericardiocentesis and at this point I think it is reasonable to stop the fluids. Gentle diuresis with Lasix is also reasonable. Plan Patient will likely be appropriate for discharge from a cardiovascular standpoint tomorrow following his swallow study. Admission and Anticipated Discharge Date Admission Date: October 22, 2023 Subjective Patient has done well overnight. He he reports improved chest discomfort. No shortness of breath. Continues with cough although he feels this is better. I note that he no longer has bigeminy on the monitor. I have reviewed his limited echo from today which revealed trivial pericardial effusion which was actually smaller than the post pericardiocentesis echo. The pericardial drain was therefore removed today. Pericardial fluid labs are pending. Gram stain was negative for bacteria. Cultures pending. The fungal stain was negative without hyphae. Culture is pending. AFB is pending. All of the viral serology ordered by Dr. Barrow is also pending. The cytology is pending. There is a plan for swallow study tomorrow. Review of Systems Review of Systems: Negative except as per HPI Physical Exam Constitutional: WD/WN, vitals as above Neck: No JVD Respiratory: Clear to auscultation bilaterally. No wheezing, rhonchi, or rales. Cardiovascular: Regular rate and rhythm. S4 gallop. Do not appreciate any rubs or murmurs today. No edema. Chest (Breasts): Additional Comments: Pigtail drain has been removed. No oozing or bleeding. Tegaderm in place. Musculoskeletal: no cyanosis or clubbing, extremities motor strength 5/5 Neurologic: Cognition is intact. Speech is fluent. No focal deficits. Psychiatric: A+Ox3, euthymic affect Results & Data Vital Signs (Past 12 Hours) Vital Signs Temp Pulse Resp BP Pulse Ox O2 Del Method O2 Flow Rate 10/24/23 14:50 36.8 C 10/24/23 14:01 110/79 10/24/23 14:00 63 18 94 10/24/23 13:18 70 31 H 93 Nasal Cannula 3 10/24/23 13:17 153/107 H 10/24/23 12:45 69 20 92 10/24/23 12:00 71 23 90 10/24/23 11:06 73 29 H 93 10/24/23 11:06 37.1 C 10/24/23 10:24 71 24 92 10/24/23 10:00 105/61 10/24/23 10:00 105/61 10/24/23 09:51 72 28 H 91 Nasal Cannula 3 10/24/23 09:00 107/67 10/24/23 09:00 71 27 H 91 Oxymask 2 10/24/23 08:18 70 27 H 91 10/24/23 08:01 111/66 10/24/23 08:00 Nasal Cannula 2 10/24/23 08:00 74 10/24/23 07:52 36.6 C 10/24/23 07:48 75 25 H 93 10/24/23 07:00 69 23 92 Oxymask 3 10/24/23 07:00 99/71 L PG Care Time/CCT Total # of Minutes Spent Total Time Spent with Patient: Total time spent is greater than 50% in coordination of care (as documented) at patient's floor/unit and/or counseling patient: Coding Level of Care Code 97446 SUB INP/OBS CARE 05/11MIN Diagnoses Acute pericardial effusion I30.9 Acute respiratory failure with hypoxia J96.01
[2023-10-24] MEDS ORDERED: FUROSEMIDE INJ 20 MG/2 ML VIAL IV ONE (16:17)
[2023-10-24] MEDS ORDERED: Nursing to Pharmacy Communication SCH (18:00)
--- NOTE | 2023-10-24 22:28 | Hospitalist Progress Note ---
Date of Service October 24, 2023 Assessment & Plan (1) Acute pericardial effusion: (2) Gastritis: (3) GERD (gastroesophageal reflux disease): (4) Thrombocytopenia: (5) Benign prostatic hyperplasia with lower urinary tract symptoms: (6) Carcinoma of bladder: Plan Hunter is a 78M w/ PMH of gastritis, GERD, BPH w/ LUTS, and bladder carcinoma s/p resection who presents for evaluation after a choking episode at home. Pericardial Effusion - Presenting with increasing chest fullness/pressure and cough w/ brief conversation, progressed to choking episode prior to arrival NPO on admission pending Cardiology intervention, would recommend speech eval prior to advancing diet - Chest CT indicating large pericardial effusion - Underlying cause undetermined, workup ongoing: ESR, CRP, BRADLEY, RF, Coxsackie, and Lyme/Babesia/Anaplasma pending No leukocytosis or renal abnormality on presenting labs Urinalysis pending BioFire negative - Suspect viral URI leading to pericarditis followed by pericardial effusion Will start Colchicine 1 mg Q12 for 24 hours followed by 0.5 mg BID Will start low dose steroids, Prednisone 20 mg PO daily, would titrate duration to inflammatory markers - Interventional Cardiology consulted, recommending Echocardiogram Echocardiogram ordered STAT 08/25/23 Echocardiogram: EF 60-65%, Aortic Root enlarged to 4.5 cm w/ trace insufficiency 08/25/23 Nuclear Stress Echo: Negative for ischemia Dr. Wright performed pericardiocenthesis. Drain in place currently in the ICU Currently not draining much this AM. anticipate drain to be removed today. Awaiting serologies. Unsure of cause. - Immediate drainage not acutely indicated d/t lack of hemodynamic compromise or unstable symptoms - Continue with conservative measures Hypoxia: acute repsiratory failure. may have been due to aspiration. will have a video swallow today could also be due to atelectasis from lingula Chronic Conditions: - GERD: PPI changed to IV - BPH w/ LUTS: continue Tamsulosin - Bladder Carcinoma: S/p resection, continues to follow w/ Urology, no active disease > 1 year Code: Full Dispo: PCU/tele Consults: Cardiology Admission and Anticipated Discharge Date Admission Date: October 22, 2023 Subjective Patient reports feeling well. He is comfortable on 3 liters nasal cannula. He reports no discomfort Review of Systems Review of Systems: All systems reviewed & are unremarkable except as noted in HPI & below Physical Exam Physical Exam: General: Alert. On oxymask. NAD. Head: Atraumatic Ears, nose, mouth and throat: airway patent Cardiovascular: pericardial drain in place draining serosanguineous fluid Respiratory: no respiratory distress, lung clear anteriorly Gastrointestinal: Non distended Musculoskeletal: moves all extremties. Results & Data Results & Data Vital Signs (Past 12 Hours) Vital Signs Temp Pulse Resp BP Pulse Ox Pulse Ox O2 Del Method 10/24/23 20:09 77 26 H 95 Nasal Cannula 10/24/23 20:00 Nasal Cannula 10/24/23 20:00 36.6 C 10/24/23 20:00 95 10/24/23 19:54 76 20 10/24/23 19:54 104/67 10/24/23 19:54 104/67 10/24/23 19:00 89 23 94 10/24/23 18:06 81 30 H 92 10/24/23 17:27 82 32 H 92 10/24/23 16:12 74 32 H 91 Nasal Cannula 10/24/23 16:01 117/80 10/24/23 15:51 71 24 91 10/24/23 15:00 71 34 H 93 10/24/23 14:50 36.8 C 10/24/23 14:03 61 17 94 10/24/23 14:01 110/79 10/24/23 14:00 63 18 94 10/24/23 13:18 70 31 H 93 Nasal Cannula 10/24/23 13:17 153/107 H 10/24/23 12:45 69 20 92 10/24/23 12:00 71 23 90 10/24/23 11:06 73 29 H 93 10/24/23 11:06 37.1 C O2 Del Method O2 Flow Rate O2 Flow Rate 10/24/23 20:09 3 10/24/23 20:00 3 10/24/23 20:00 10/24/23 20:00 Nasal Cannula 3 10/24/23 19:54 10/24/23 19:54 10/24/23 19:54 10/24/23 19:00 10/24/23 18:06 10/24/23 17:27 10/24/23 16:12 3 10/24/23 16:01 10/24/23 15:51 10/24/23 15:00 10/24/23 14:50 10/24/23 14:03 10/24/23 14:01 10/24/23 14:00 10/24/23 13:18 3 10/24/23 13:17 10/24/23 12:45 10/24/23 12:00 10/24/23 11:06 10/24/23 11:06 PG Care Time/CCT Total # of Minutes Spent Total Time Spent with Patient: Total time spent is greater than 50% in coordination of care (as documented) at patient's floor/unit and/or counseling patient: Coding Level of Care Code 92802 SUB INP/OBS CARE 2/35MIN Diagnoses Acute pericardial effusion I30.9 Gastritis K29.70 GERD (gastroesophageal reflux disease) K21.9 Thrombocytopenia D69.6 Benign prostatic hyperplasia with lower urinary tract symptoms N40.1 Carcinoma of bladder C67.9
[2023-10-25 04:56] LABS: Basophils # (auto) 0.02 K/uL (0.00-0.20); Basophils % (auto) 0.3 %; Eosinophils # (auto) 0.12 K/uL (0.00-0.50); Hematocrit (blood only) 35.6 % (42.0-52.0); Hemoglobin 11.8 g/dl (14.0-18.0); Immature Granulocytes # (auto) 0.03 K/uL (0.01-0.20); Immature Granulocytes % (auto) 0.5 %; Lymphocytes # (auto) 1.52 K/uL (1.20-3.40); Lymphocytes % (auto) 25.2 %; Mean Corpuscular Hemoglobin 30.6 pg (25.0-34.0); Mean Corpuscular Hgb Conc 33.1 g/dL (32.0-36.0); Mean Corpuscular Volume 92.2 fL (80.0-100.0); Mean Platelet Volume 8.6 fL (9.4-12.4); Neutrophils # (auto) 3.73 K/uL (1.40-6.50); Platelet Count 199 K/uL (130-400); RDW Coefficient of Variation 12.2 % (11.5-14.5); RDW Standard Deviation 41.2 fL (36.4-46.3); Red Blood Count 3.86 M/uL (4.70-6.10); White Blood Count 6.02 K/ul (4.8-10.8)
[2023-10-25 05:08] LABS: Calcium 7.6 mg/dl (8.6-10.3); Creatinine Clr Calc Pharmacy 72.9 ml/min; Est GFR (Non-African American) 82.9 ml/min; Magnesium 2.2 mg/dl (1.7-2.4); Potassium 4.2 mmol/L (3.5-5.1)
--- NOTE | 2023-10-25 07:18 | Pulmonology Progress Note ---
Date of Service October 25, 2023 Assessment & Plan (1) Acute pericardial effusion: (2) Abnormal chest CT: (3) Acute respiratory failure with hypoxia: Plan CT chest 10/22/2023 personally reviewed: Right upper lobe apical 1.7 cm left Atelectasis of the inferior lobe of the lingula Subsegmental atelectasis bilateral lower lobes more on the right side Large pericardial effusion No significant mediastinal lymphadenopathy -- Acute hypoxic respiratory failure Multifactorial Questionable aspiration at home as well as while in the ICU Does have collapse of the inferior lobe of the lingula, could be mechanical from the large pericardial effusion CRP 11.01, ESR 55 Respiratory bio fire negative for everything -- Abnormal chest CT Patient seems to have atelectasis of the inferior lobe of the lingula New compared to CT chest in 2016. Could be consequent to compression by large pericardial effusion Recommend repeating a CT chest in 6-8 weeks Plan: No significant change in the chest x-ray. Mild improved aeration but retrocardiac on the left side. Continue with O2 supplementation to keep oxygen saturation around 90-92% for start titrating down oxygen Continue with incentive spirometry Recommend CT chest without contrast to be repeated in 4-6 weeks. If the patient still has persistent atelectasis of the lingula then bronchoscopy could be considered Case was discussed with RN at bedside Please note the above document was generated using voice recognition software. It may contain grammatical, syntax or spelling errors.Any formal questions or concerns about the content, text or information contained within the body of this dictation should be directly addressed to the provider for clarification. Admission and Anticipated Discharge Date Admission Date: October 22, 2023 Subjective Patient seen and examined at bedside. No acute distress, no dressings overnight Patient's daughter as well as in the room He was saturating 95% on 2 L when I walked in. On examining the patient and asking him to take deep breaths, his saturation went up to 98% I went down to 1 L of oxygen Denied any chest pain Does complain of cough when he is talking a lot Denies any difficulty swallowing Appetite is better Review of Systems 2 Review of Systems: All systems reviewed & are unremarkable except as noted in Subjective Physical Exam 2 Physical Exam: Constitutional: No acute distress HEENT: EOMI, PERRLA Respiratory system: Good air entry bilaterally, no wheeze, no rhonchi, mild crackles bilateral lower lobes CVS: S1-S2 positive, no murmurs or gallops Abdomen: Soft, nontender, nondistended, positive bowel sounds x4 Extremities: +2 pulses bilaterally radialis/ dorsalis pedis, no cyanosis, no edema Neuro: Awake alert oriented x3 Psych: Normal mood and affect G/U: No Chacko Skin: no rashes, warm and dry Lymphatic: no cervical or axillary lymphadenopathy Results & Data Results & Data Vital Signs (Past 12 Hours) Vital Signs Temp Pulse Resp BP Pulse Ox Pulse Ox O2 Del Method 10/25/23 06:00 58 L 17 96 Nasal Cannula 10/25/23 06:00 104/69 10/25/23 05:00 58 L 16 110/81 94 Nasal Cannula 10/25/23 05:00 70 22 94 10/25/23 05:00 110/81 10/25/23 05:00 110/81 10/25/23 04:03 57 L 18 96 10/25/23 04:00 112/63 10/25/23 04:00 36.8 C 10/25/23 03:54 58 L 19 96 10/25/23 03:03 58 L 16 96 10/25/23 03:00 93/55 L 10/25/23 03:00 93/55 L 10/25/23 03:00 93/55 L 10/25/23 03:00 93/55 L 10/25/23 02:51 54 L 17 95 10/25/23 02:06 60 18 95 10/25/23 02:00 112/66 10/25/23 02:00 112/66 10/25/23 02:00 112/66 10/25/23 01:45 63 18 95 10/25/23 01:15 63 17 96 10/25/23 01:00 102/68 10/25/23 00:57 67 17 95 10/25/23 00:15 70 23 93 10/25/23 00:00 72 21 110/72 93 10/25/23 00:00 37.0 C 10/25/23 00:00 72 10/24/23 23:42 72 23 92 10/24/23 23:00 62 18 92 10/24/23 23:00 94/57 L 10/24/23 22:00 66 18 94 10/24/23 22:00 94/66 L 92 10/24/23 21:09 68 22 94 10/24/23 21:00 101/64 10/24/23 20:45 72 27 H 95 10/24/23 20:09 77 26 H 95 Nasal Cannula 10/24/23 20:00 Nasal Cannula 10/24/23 20:00 36.6 C 10/24/23 20:00 95 10/24/23 19:54 76 20 10/24/23 19:54 104/67 10/24/23 19:54 104/67 O2 Del Method O2 Flow Rate O2 Flow Rate 10/25/23 06:00 3 10/25/23 06:00 10/25/23 05:00 3 10/25/23 05:00 10/25/23 05:00 10/25/23 05:00 10/25/23 04:03 10/25/23 04:00 10/25/23 04:00 10/25/23 03:54 10/25/23 03:03 10/25/23 03:00 10/25/23 03:00 10/25/23 03:00 10/25/23 03:00 10/25/23 02:51 10/25/23 02:06 10/25/23 02:00 10/25/23 02:00 10/25/23 02:00 10/25/23 01:45 10/25/23 01:15 10/25/23 01:00 10/25/23 00:57 10/25/23 00:15 10/25/23 00:00 10/25/23 00:00 10/25/23 00:00 10/24/23 23:42 10/24/23 23:00 10/24/23 23:00 10/24/23 22:00 10/24/23 22:00 10/24/23 21:09 10/24/23 21:00 10/24/23 20:45 10/24/23 20:09 3 10/24/23 20:00 3 10/24/23 20:00 10/24/23 20:00 Nasal Cannula 3 10/24/23 19:54 10/24/23 19:54 10/24/23 19:54 Laboratory Results 10/25/23 04:31 10/25/23 04:31 PG Care Time/CCT Total # of Minutes Spent Total Time Spent with Patient: Total time spent is greater than 50% in coordination of care (as documented) at patient's floor/unit and/or counseling patient: Coding Level of Care Code 48778 SUB INP/OBS CARE 2/35MIN Diagnoses Acute pericardial effusion I30.[address] R93.89 Acute respiratory failure with hypoxia J96.01
[2023-10-25] MEDS: FUROSEMIDE INJ 20 MG/2 ML VIAL IV ONE (08:25)
[2023-10-25] MEDS: PANTOprazole 40 MG TAB PO SCH (08:26)
--- NOTE | 2023-10-25 09:35 | XRay Report ---
XR chest 1V portable HISTORY: Hypoxia. COMPARISON: Chest 10/24/2023. FINDINGS: No pneumothorax. No pleural effusions. Patchy left basilar densities persist. The cardiac s ilhouette remains mildly enlarged. No new focal lung consolidations. No evidence for edema. A left pe ricardial drain is not identified with certainty and may have been removed in the interval. IMPRESSION: 1. Stable mild enlargement of the cardiac silhouette. 2. The left pericardial drain is not identified with certainty and may have been removed in the inter mikey. ACT 112: Negative or not required by law. Electronically signed by: Mariusz Liu M.D. 10/25/2023 9:33 AM
--- NOTE | 2023-10-25 13:44 | Fluoroscopy Report ---
VIDEO SWALLOW STUDY CLINICAL HISTORY: Aspiration. COMPARISON STUDY: No priors. Fluoroscopy time: 56 seconds. Ka,r: 9.6 mGy FINDINGS: Fluoroscopic guidance is provided to the Department of speech pathology in performing a vid eo swallow study. The patient consumed barium-impregnated pudding, cracker with paste, nectar-thick l iquids, and thin barium while the swallowing mechanism was observed in real-time. No penetration or a spiration was seen with any of the sampled textures. IMPRESSION: 1. No penetration or aspiration was seen with any of the sampled textures. 2. See dedicated speech pathology report for detailed findings and recommendations. Dictated: 10/25/2023 11:08 AM Transcribed: 10/25/2023 11:25 AM Daniel [id number] [email or web address] Electronically signed by: Jarrod Morales M.D. 10/25/2023 1:42 PM
--- NOTE | 2023-10-25 15:47 | Cardiology Progress Note ---
Date of Service October 25, 2023 Assessment & Plan (1) Acute respiratory failure with hypoxia: Plan: Hypoxia seems to be most related to atelectasis. No pneumonia, significant pleural effusion, etc. X-ray report suggests only change in his x-ray was removal of the pigtail catheter. The x-ray image I was able to visualize appeared overpenetrated compared to prior. Clearly did not demonstrate any significant pleural effusion. Therefore, he probably does not need a diuretic at discharge. Further workup and management per pulmonary/critical care medicine. (2) Acute pericardial effusion: Plan: On known etiology but most likely postviral beginning in August of this year. He has not been having chest pain recently although he did have some burning discomfort prior to admission. It may be that the pericardial inflammation process is at the nino. He does not need steroids at this point. It is reasonable for him to continue colchicine for at least 2 more weeks. I will see him in the office and we will decide if a more protracted course of colchicine is needed at that point. We could go up to 3 months (and would have done so had he presented with acute pericarditis rather than what appears to be subacute). I will also have him undergo limited 2D echocardiogram prior to follow-up visit. That can be done here at the hospital for direct comparison to the hospital imaging from this admission. He will notify me if he has any recurrence of his symptoms prior to that time. He and his family have also been instructed that he may shower for the next 4 to 5 days. I do not recommend that he soak in a hot tub or swimming pool during that time. He should wash the wound with soap and water and then may apply Neosporin gel to the area and cover with a Band-Aid for the next 3 days. Plan Okay for discharge from a cardiology standpoint. Admission and Anticipated Discharge Date Admission Date: October 22, 2023 Subjective Patient has improved further. No chest pain. He does have occasional persistent coughing. He has had a decreased need for oxygen supplementation. At rest his O2 saturation is running from 90 to 92% but if he takes deep breaths or when he was walking his oxygen saturation actually increased. This would be consistent with atelectasis at rest. He has had no further chest pain. I removed the bandage and the access site is clean dry and intact. He underwent barium swallow study which was negative for aspiration. His cytology is reportedly normal. We are awaiting all of the viral workup but if he had the viral infection in August when he first presented with chest pain then it is likely that the viral panel will come back negative as well. He voices no other complaints or concerns at this time. His family was at the bedside and their questions were answered in detail. Review of Systems Review of Systems: Negative except as per HPI Physical Exam Constitutional: WD/WN, vitals as above Neck: No JVD Respiratory: Clear to auscultation bilaterally. No wheezing, rhonchi, or rales. Cardiovascular: Regular rate and rhythm. S4 gallop. Do not appreciate any rubs or murmurs today. No edema. Chest (Breasts): Additional Comments: Access site clean dry and intact. Musculoskeletal: no cyanosis or clubbing, extremities motor strength 5/5 Neurologic: Cognition is intact. Speech is fluent. No focal deficits. Psychiatric: A+Ox3, euthymic affect Results & Data Vital Signs (Past 12 Hours) Vital Signs Temp Pulse Resp BP Pulse Ox O2 Del Method O2 Flow Rate 10/25/23 12:00 87 22 94 Nasal Cannula 1 10/25/23 12:00 94/60 L 10/25/23 11:09 98/77 L 10/25/23 11:06 82 24 93 10/25/23 10:06 78 21 92 Nasal Cannula 1 10/25/23 10:00 92/72 L 10/25/23 09:54 84 23 92 10/25/23 09:03 86 22 93 Nasal Cannula 3 10/25/23 09:01 124/92 10/25/23 08:57 80 16 93 10/25/23 08:24 73 23 121/80 93 10/25/23 08:00 Nasal Cannula 3 10/25/23 07:44 52 L 10/25/23 07:09 56 L 19 96 Nasal Cannula 3 10/25/23 07:00 94/61 L 10/25/23 06:42 63 16 95 10/25/23 06:00 58 L 17 96 Nasal Cannula 3 10/25/23 06:00 104/69 10/25/23 05:00 58 L 16 110/81 94 Nasal Cannula 3 10/25/23 05:00 70 22 94 10/25/23 05:00 110/81 10/25/23 05:00 110/81 10/25/23 04:03 57 L 18 96 10/25/23 04:00 112/63 10/25/23 04:00 36.8 C 10/25/23 03:54 58 L 19 96 PG Care Time/CCT Total # of Minutes Spent Total Time Spent with Patient: Total time spent is greater than 50% in coordination of care (as documented) at patient's floor/unit and/or counseling patient: Coding Level of Care Code 11869 SUB INP/OBS CARE 2/35MIN Diagnoses Acute respiratory failure with hypoxia J96.01 Acute pericardial effusion I30.9
[2023-10-25] MEDS: NEOMYCIN/POLYMYX/BACITR OINT 15 GM TUBE EXT SCH (17:50)
--- NOTE | 2023-10-25 22:52 | Hospitalist Progress Note ---
Date of Service October 25, 2023 Assessment & Plan (1) Acute pericardial effusion: (2) Gastritis: (3) GERD (gastroesophageal reflux disease): (4) Thrombocytopenia: (5) Benign prostatic hyperplasia with lower urinary tract symptoms: (6) Carcinoma of bladder: Plan Hunter is a 78M w/ PMH of gastritis, GERD, BPH w/ LUTS, and bladder carcinoma s/p resection who presents for evaluation after a choking episode at home. Pericardial Effusion - Presenting with increasing chest fullness/pressure and cough w/ brief conversation, progressed to choking episode prior to arrival NPO on admission pending Cardiology intervention, would recommend speech eval prior to advancing diet - Chest CT indicating large pericardial effusion - Underlying cause undetermined, workup ongoing: ESR, CRP, BRADLEY, RF, Coxsackie, and Lyme/Babesia/Anaplasma pending No leukocytosis or renal abnormality on presenting labs Urinalysis pending BioFire negative - Suspect viral URI leading to pericarditis followed by pericardial effusion Will start Colchicine 1 mg Q12 for 24 hours followed by 0.5 mg BID Will start low dose steroids, Prednisone 20 mg PO daily, would titrate duration to inflammatory markers - Interventional Cardiology consulted, recommending Echocardiogram Echocardiogram ordered STAT 08/25/23 Echocardiogram: EF 60-65%, Aortic Root enlarged to 4.5 cm w/ trace insufficiency 08/25/23 Nuclear Stress Echo: Negative for ischemia Dr. Wright performed pericardiocenthesis. Drain in place currently in the ICU Currently not draining much this AM. anticipate drain to be removed today. Awaiting serologies. Unsure of cause. - Immediate drainage not acutely indicated d/t lack of hemodynamic compromise or unstable symptoms - Continue with conservative measures pigtail catheter now removed. Will monitor for another night and if doing well, we will discharge in the morning. Hypoxia: acute repsiratory failure. may have been due to aspiration. will have a video swallow today could also be due to atelectasis from lingula Chronic Conditions: - GERD: PPI changed to IV - BPH w/ LUTS: continue Tamsulosin - Bladder Carcinoma: S/p resection, continues to follow w/ Urology, no active disease > 1 year Code: Full Dispo: PCU/tele Consults: Cardiology Admission and Anticipated Discharge Date Admission Date: October 22, 2023 Subjective Patient reports feeling well. Patient has no new symptoms. Patient states he is not hypoxic when he lays down flat nor when he walks, only when he sits up. Review of Systems Review of Systems: All systems reviewed & are unremarkable except as noted in HPI & below Physical Exam Physical Exam: General: Alert. On oxymask. NAD. Head: Atraumatic Ears, nose, mouth and throat: airway patent Cardiovascular: pericardial drain in place draining serosanguineous fluid Respiratory: no respiratory distress, lung clear anteriorly Gastrointestinal: Non distended Musculoskeletal: moves all extremties. Results & Data Results & Data Vital Signs (Past 12 Hours) Vital Signs Temp Pulse Pulse Resp BP BP Pulse Ox 10/25/23 21:16 10/25/23 19:21 36.8 C 78 18 99/70 L 95 10/25/23 16:19 119/84 10/25/23 16:06 91 H 18 95 10/25/23 16:00 74 10/25/23 16:00 36.6 C 10/25/23 15:09 78 20 91 10/25/23 14:06 77 24 92 10/25/23 13:00 83 93 10/25/23 12:00 87 22 94 10/25/23 12:00 94/60 L 10/25/23 11:09 98/77 L 10/25/23 11:06 82 24 93 O2 Del Method O2 Flow Rate 10/25/23 21:16 Room Air 10/25/23 19:21 Room Air 10/25/23 16:19 10/25/23 16:06 Nasal Cannula 10/25/23 16:00 10/25/23 16:00 10/25/23 15:09 10/25/23 14:06 10/25/23 13:00 10/25/23 12:00 Nasal Cannula 1 10/25/23 12:00 10/25/23 11:09 10/25/23 11:06 PG Care Time/CCT Total # of Minutes Spent Total Time Spent with Patient: Total time spent is greater than 50% in coordination of care (as documented) at patient's floor/unit and/or counseling patient: Coding Level of Care Code 43416 SUB INP/OBS CARE 2/35MIN Diagnoses Acute pericardial effusion I30.9 Gastritis K29.70 GERD (gastroesophageal reflux disease) K21.9 Thrombocytopenia D69.6 Benign prostatic hyperplasia with lower urinary tract symptoms N40.1 Carcinoma of bladder C67.9
[2023-10-26 03:10] VITALS: RESP 18
--- NOTE | 2023-10-26 07:14 | Pulmonology Progress Note ---
Date of Service October 26, 2023 Assessment & Plan (1) Acute pericardial effusion: (2) Abnormal chest CT: (3) Acute respiratory failure with hypoxia: Plan CT chest 10/22/2023 personally reviewed: Right upper lobe apical 1.7 cm left Atelectasis of the inferior lobe of the lingula Subsegmental atelectasis bilateral lower lobes more on the right side Large pericardial effusion No significant mediastinal lymphadenopathy -- S/p acute hypoxic respiratory failure Multifactorial Questionable aspiration at home as well as while in the ICU Does have collapse of the inferior lobe of the lingula, could be mechanical from the large pericardial effusion CRP 11.01, ESR 55 Respiratory bio fire negative for everything -- Abnormal chest CT Patient seems to have atelectasis of the inferior lobe of the lingula New compared to CT chest in 2016. Could be consequent to compression by large pericardial effusion Recommend repeating a CT chest in 6-8 weeks Plan: Recommend CT chest without contrast to be repeated in 4-6 weeks. If the patient still has persistent atelectasis of the lingula then bronchoscopy could be considered Continue with incentive spirometry No further recommendation from pulmonary perspective, will sign off Please call directly with any questions Please note the above document was generated using voice recognition software. It may contain grammatical, syntax or spelling errors.Any formal questions or concerns about the content, text or information contained within the body of this dictation should be directly addressed to the provider for clarification. Admission and Anticipated Discharge Date Admission Date: October 22, 2023 Subjective Patient seen and examined at bedside. No acute distress, no adverse events overnight He was saturating 92% on room air when I entered the room. On asking him to take deep breaths his saturation was 95 to 96% He is still coughing when he takes deep breath in but it has significantly improved Does not complain of any chest discomfort When he does bring up phlegm is mostly clear. No hemoptysis. Has been afebrile Review of Systems 2 Review of Systems: All systems reviewed & are unremarkable except as noted in Subjective Physical Exam 2 Physical Exam: Constitutional: No acute distress HEENT: EOMI, PERRLA Respiratory system: Good air entry bilaterally, no wheeze, no rhonchi, mild crackles bilateral lower lobes CVS: S1-S2 positive, no murmurs or gallops Abdomen: Soft, nontender, nondistended, positive bowel sounds x4 Extremities: +2 pulses bilaterally radialis/ dorsalis pedis, no cyanosis, no edema Neuro: Awake alert oriented x3 Psych: Normal mood and affect G/U: No [place]acko Skin: no rashes, warm and dry Lymphatic: no cervical or axillary lymphadenopathy Results & Data Results & Data Vital Signs (Past 12 Hours) Vital Signs Temp Pulse Pulse Resp BP Pulse Ox O2 Del Method 10/26/23 06:58 72 10/26/23 03:09 36.6 C 71 18 125/77 93 Room Air 10/26/23 00:00 72 10/25/23 22:51 36.9 C 67 16 111/73 93 Room Air 10/25/23 21:16 Room Air 10/25/23 19:21 36.8 C 78 18 99/70 L 95 Room Air Laboratory Results 10/25/23 04:31 10/25/23 04:31 PG Care Time/CCT Total # of Minutes Spent Total Time Spent with Patient: Total time spent is greater than 50% in coordination of care (as documented) at patient's floor/unit and/or counseling patient: Coding Level of Care Code 24982 SUB INP/OBS CARE 2/35MIN Diagnoses Acute pericardial effusion I30.[address] R93.89 Acute respiratory failure with hypoxia J96.01
[2023-10-26 07:21] VITALS: BP 116/79; PULSE 77; TEMP 98.4; O2SAT 92
[2023-10-26 07:46] LABS: Basophils # (auto) 0.03 K/uL (0.00-0.20); Basophils % (auto) 0.4 %; Eosinophils # (auto) 0.14 K/uL (0.00-0.50); Hematocrit (blood only) 37.1 % (42.0-52.0); Hemoglobin 12.7 g/dl (14.0-18.0); Immature Granulocytes # (auto) 0.03 K/uL (0.01-0.20); Immature Granulocytes % (auto) 0.4 %; Lymphocytes # (auto) 1.49 K/uL (1.20-3.40); Mean Corpuscular Hgb Conc 34.2 g/dL (32.0-36.0); Mean Corpuscular Volume 90.5 fL (80.0-100.0); Mean Platelet Volume 8.6 fL (9.4-12.4); Monocytes # (auto) 0.61 K/uL (0.11-0.59); Monocytes % (auto) 8.6 %; Neutrophils # (auto) 4.81 K/uL (1.40-6.50); Neutrophils % (auto) 67.6 %; Platelet Count 222 K/uL (130-400); RDW Coefficient of Variation 11.9 % (11.5-14.5); RDW Standard Deviation 39.4 fL (36.4-46.3); White Blood Count 7.11 K/ul (4.8-10.8)
[2023-10-26 08:02] LABS: BUN Creatinine Ratio 18.6 (10-20); C Reactive Protein 2.67 mg/dl (0-0.5); Creatinine Clr Calc Pharmacy 64.7 ml/min; Est GFR (African American) 86.9 ml/min; Magnesium 2.1 mg/dl (1.7-2.4); Potassium 3.7 mmol/L (3.5-5.1)
[2023-10-26] MEDS: predniSONE 10 MG TABLET PO SCH (08:12)
--- NOTE | 2023-10-26 08:15 | Discharge Summary ---
Date of Service October 26, 2023 Admission HPI Per Admitting Provider Andras is a 78M w/ PMH of gastritis, GERD, BPH w/ LUTS, bladder carcinoma s/p resection, thrombocytopenia, and leukopenia who presents for evaluation after a choking episode at home. Patient notes that mid-afternoon today he had a choking/coughing episode while drinking water and subsequently felt lightheaded and like he was going to pass out. He was able to walk to the bathroom and started to experience nausea and belching. This acute episode prompted him to present to the ED. He notes that over the last week, starting 10/15 he started to feel unwell. His symptoms started with fatigue, but progressed to fevers, chills, and chest heaviness and pressure. He presented to [facility] 10/17 for fevers at home, and was advised to continue OTC supportive measures for a URI (COVID, Flu, and Strep were negative). Patient continued to have intermittent fevers. He has been unable to eat due to chest pressure, notes that his chest feels to full to eat. Patient has been taking Tylenol for his symptoms (Last dose at 10/20). Patient denies dyspnea at rest, but notes that he becomes dyspneic and has coughing spells when he tries to talk to someone. He deneis headaches, lightheadedness or dizziness. Patient notes no changes in urinary or bowel habits, no hematuria or BRBPM. Patient does note that it has been requiring increasing amounts of effort over the last week to do his normal activities, as he becomes fatigued very quickly. Was at [facility] in [place] (2 months ago) and had an extreme episode of gastritis, at this time had an EGD and was diagnosed. Took PPI and 1-2 days later was feeling back to normal and was able to drive back to [place]. When he started having coughing episodes, he did increase his Famotidine to BID, and it helped briefly, but the coughing continued to progress. Principal Diagnosis scute pericardial effusion Discharge Exam General: Alert. Head: Atraumatic Ears, nose, mouth and throat: airway patent Cardiovascular: RRR, Respiratory: no respiratory distress, lung clear anteriorly Gastrointestinal: Non distended Musculoskeletal: moves all extremties. Discharge Data Allergies Allergy/AdvReac Type Severity Reaction Status Date / Time No Known Drug Allergies Allergy Verified 10/27/23 14:46 Consultations 10/22/23 18:28 Consult Cardiology Stat 10/22/23 18:49 ED Decision to Admit Stat 10/23/23 11:51 Consult Pool Manager Routine 10/23/23 13:40 Consult Pulmonology Routine Procedures Performed Operation Date: 10/23/23 10:00 Actual Procedures p Peric[employer]ian Drainage [employer]. Indw cath - Doug Wright MD, PhD Ordered Studies 10/22/23 16:52 CT chest diagnostic w con Stat CT neck soft tissues [CT soft tissue neck w con] Stat 10/23/23 09:20 CL Cath Imgs for PACS use only Stat 10/25/23 10:30 FL video swallow Routine Hospital Course (1) Acute pericardial effusion: (2) Gastritis: (3) GERD (gastroesophageal reflux disease): (4) Thrombocytopenia: (5) Benign prostatic hyperplasia with lower urinary tract symptoms: (6) Carcinoma of bladder: Lily Harrison is a 78M w/ PMH of gastritis, GERD, BPH w/ LUTS, and bladder carcinoma s/p resection who presents for evaluation after a choking episode at home. Pericardial Effusion - Presenting with increasing chest fullness/pressure and cough w/ brief conversation, progressed to choking episode prior to arrival NPO on admission pending Cardiology intervention, would recommend speech eval prior to advancing diet - Chest CT indicating large pericardial effusion - Underlying cause undetermined, workup ongoing: ESR, CRP, BRADLEY, RF, Coxsackie, and Lyme/Babesia/Anaplasma pending No leukocytosis or renal abnormality on presenting labs Urinalysis pending BioFire negative - Suspect viral URI leading to pericarditis followed by pericardial effusion Will start Colchicine 1 mg Q12 for 24 hours followed by 0.5 mg BID Will start low dose steroids, Prednisone 20 mg PO daily, would titrate duration to inflammatory markers - Interventional Cardiology consulted, recommending Echocardiogram Echocardiogram ordered STAT 08/25/23 Echocardiogram: EF 60-65%, Aortic Root enlarged to 4.5 cm w/ trace insufficiency 08/25/23 Nuclear Stress Echo: Negative for ischemia Dr. Wright performed pericardiocenthesis. after 24 hours: pigtail no longer draining and was then removed. Awaiting serologies. Unsure of cause. -Patient was then discharged on 10/25 Hypoxia: acute repsiratory failure. may have been due to aspiration vs atele ctasis. video swallow was negative which makes aspiration less likely. could also be due to atelectasis from lingula Chronic Conditions: - GERD: PPI changed to IV - BPH w/ LUTS: continue Tamsulosin - Bladder Carcinoma: S/p resection, continues to follow w/ Urology, no active disease > 1 year Total Time Total Time Spent Total Time Spent (In Minutes): 32 Discharge Plan Discharge Items Patient Disposition: Home - Self-Care Reason For Visit: PERICARIDAL EFFUSION Discharge Diagnosis: Pericardial effusion Acute hypoxic respiratory distress Status post pericardiocentesis Activity: As commented below Activity Comment: Gradually resume prior activities over the next 5 days. Lifting: No more than 5 pounds Lifting Comment: For 5 days Bathing: May shower/bathe in 3 days Bathing Comment: May shower immediately. 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 Cardiology recommends no need for steroids. We will schedule a follow-up with Dr. Flores in a couple of weeks. You will continue on colchicine for 2 more weeks, and in that appointment Dr. Flores will discuss if you need to extend it for 3 months. We will also have you undergo a limited 2D echocardiogram prior to follow-up visit. That can be done here at the hospital for direct comparison to the hospital imaging from this admission. Please notify Dr. Flores if you have any recurrence of your symptoms prior to that time. You may shower for the next 4 to 5 days. I do not recommend that he soak in a hot tub or swimming pool during that time. You should wash the wound with soap and water and then may apply Neosporin gel to the area and cover with a Band-Aid for the next 3 days. Pending Studies at Discharge: No Stand-Alone Forms: My [facility], Smoking Cessation Medications and DC Order Prescriptions: New colchicine [Colcrys] 0.6 mg Tablet 0.6 mg PO BID Qty: 60 2RF Continued pantoprazole 40 mg tablet,delayed release (DR/EC) 40 mg PO QAM Qty: 30 5RF glucosamine sulfate 500 mg capsule 500 mg PO Q OTHER DAY Patient Comments: takes in am multivitamin Tablet 1 tab PO DAILY mecobalamin (vitamin B12) 1,000 mcg tablet,chewable 1,000 mcg PO DAILY cholecalciferol (vitamin D3) 50 mcg (2,000 unit) capsule 50 mcg PO DAILY tamsulosin 0.4 mg capsule 0.4 mg PO Q OTHER DAY Discharge Orders: Discharge Order (Routine); Ordered 10/26/23 Ordered By: Wallace Hayward/Other Patient Handouts: Colchicine Oral Tablet Admission Data Admit Date/Time: 10/22/23 20:30 Attending Provider: Wallace Suarez Admit Provider: Luke Jefferson Primary Care Provider: Faustino Leija Other Providers: Bran Guerra; Shaka Lawrence; Stoney Judge; Rubens Trejo; Jessica Newby; Marga Negrete; Lorenzo Wade; Scot Worley; Tami Wilcox; Doug Wright; Matt Longo; Roberto Landis; Vinnie Ramirez; Herve Foster Other Interventions: Discharge Summary Assessment (RN) Last Done: 10/26/23 09:20 Coding Level of Care Code 23924 INP/OBS DISCH >30 MIN Diagnoses Acute pericardial effusion I30.9 Gastritis K29.70 GERD (gastroesophageal reflux disease) K21.9 Thrombocytopenia D69.6 Benign prostatic hyperplasia with lower urinary tract symptoms N40.1 Carcinoma of bladder C67.9
[2023-10-26 12:17] LABS: Babesia microti DNA Not Detected (Not Detected)
[2023-10-27 20:22] LABS: Anti Nuclear Antibody Screen NEGATIVE (NEGATIVE); Coxsackie A10 <1:8; Coxsackie A16 <1:8; Coxsackie A2 <1:8; Coxsackie A4 <1:8; Coxsackie A7 <1:8; Coxsackie A9 <1:8; Rheumatoid Factor 12 IU/mL (<14)
[2023-10-29] MEDS ORDERED: predniSONE 5 MG TAB PO SCH (09:00)
== END 2023-10-26 12:00 | disposition home or self-care (01) | DRG 314 ==
LOC: ED 16:33 → 2E 20:30 → SUATTDRO 20:30 → 2E 22:10 → 1E 10-23 11:40 → 2S 10-25 18:53